=== PATIENT | male | born 1965 | race Two or more races ===

== ENCOUNTER 2019-01-11 11:24 | Inpatient (IN) | payer SELFPAY ==
[~2019-01-11] VITALS: Ht 167.6 cm; Wt 102.5 kg
[2019-01-11 12:58] LABS: Basophils # (auto) 0 uL; Basophils % (auto) 0.3 % (0.0-2.0); Eosinophils # (auto) 0.2 uL; Eosinophils % (auto) 1.9 % (0.0-7.0); Hematocrit 45.3 % (41.0-53.0); Hemoglobin 14.5 g/dL (13.5-17.5); Lymphocytes # (auto) 1.1 uL; Lymphocytes % (auto) 10.8 % (10.0-50.0); Mean Corpuscular Hemoglobin 28.2 pg (28.0-32.0); Mean Corpuscular Hgb Conc. 32.1 g/dL (32.0-36.0); Mean Corpuscular Volume 87.9 fL (80.0-100.0); Monocytes # (auto) 0.5 uL; Neutrophils # (auto) 8.7 uL; Nucleated Red Blood Cells % 0.1 %; Platelet Count (auto) 192 10^3/uL (140-450); Red Blood Cells 5.15 10^6/uL (4.5-5.90); Red Cell Distribution Width 14.3 % (11.8-14.3); White Blood Cell 10.6 10^3/uL (4.4-10.8)
[2019-01-11 13:12] LABS: INR 1.12 (0.9-1.15); Partial Thromboplastin Time 27.5 sec (23.78-33.04); Prothrombin Time 11.9 sec (9.27-12.13)
[2019-01-11 13:31] LABS: Albumin 3.2 g/dL (3.4-5.0); BUN/Creatinine Ratio 18.3; Calcium 8.7 mg/dL (8.5-10.1); Magnesium 1.8 mg/dL (1.6-2.6); Potassium 3.3 mmol/L (3.5-5.1)
[2019-01-11 13:36] LABS: Bilirubin, Total 1.2 mg/dL (0.2-1.0); Total Protein 6.9 g/dL (6.4-8.2)
[2019-01-11] MEDS ORDERED: FUROSEMIDE 40 MG/4 ML VIAL IV ONE (14:00)
[2019-01-11] MEDS ORDERED: hydrALAZINE HCL 20 MG/ML VL IV ONE (14:00)
[2019-01-11] MEDS ORDERED: NITROGLYCERIN 0.4 MG SL TAB SL PRN (15:30)
[2019-01-11] MEDS ORDERED: LACTULOSE 20Gm/30ML SOLN PO PRN (15:30)
[2019-01-11] MEDS ORDERED: traMADol HCL 50 MG TAB PO PRN (15:30)
[2019-01-11] MEDS ORDERED: MORPHINE SULF INJ 2 MG/ML SYRINGE 1ML IV PRN (15:30)
[2019-01-11] MEDS ORDERED: SPIRONOLACTONE 25 MG TAB PO ONE (15:30)
[2019-01-11] MEDS ORDERED: TEMAZEPAM 15 MG CAP PO PRN (15:30)
[2019-01-11] MEDS ORDERED: LORazepam 0.5 MG TAB PO PRN (15:30)
[2019-01-11] MEDS ORDERED: PROMETHAZINE HCL 25 MG/ML 1ML IV PRN (15:30)
[2019-01-11] MEDS ORDERED: ACETAMINOPHEN 500 MG TAB PO PRN (15:30)
[2019-01-11] MEDS: ENALAPRIL MALEATE 10 MG TAB PO SCH (15:51)
[2019-01-11] MEDS: POTASSIUM CHL 20 Meq TABLET PO SCH (18:19)
--- NOTE | 2019-01-11 18:50 | NUR ---
Telemetry admit from [facility] admitted to Telemetry uniT. Patient oriented to Mitzi Adams RN primary RN, E[facility] unit, room 236, bed A, and unit policies regarding patient care and visiting hours. Patient now on continuous telemetry monitoring, tele box #6 and telemetry reading on arrival to unit is [facility]. Patient placed on bedside oxygen, weighed by bedscale and encouraged to call if they need something. All questions and concerns addressed, patient verbalized understanding. Note:
[2019-01-11] MEDS: ENALAPRILAT 1.25 MG/ML-1ML VIAL IV PRN (18:51)
[2019-01-11] MEDS ORDERED: ENOXAPARIN SOD 100 MG/1 ML SYRINGE SC ONE (19:00)
[2019-01-11] MEDS ORDERED: ASPirin 81 mg TAB PO ONE ×2 (19:00→20:00)
[2019-01-11] MEDS ORDERED: THIAMINE HCL 100 MG TAB PO ONE (19:00)
[2019-01-11] MEDS ORDERED: chlordiazePOXIDE HCL 25 MG CAP PO PRN (19:00)
--- NOTE | 2019-01-11 19:05 | NUR ---
WOUND PICTURE WOUND PICTURE TAKEN OF RIGHT GREAT TOE SMALL DISCOLORATION BLACKENED AREA NOTED.
--- NOTE | 2019-01-11 19:15 | NUR ---
Patient care and report handed off to Kolbyei RN. Made aware admission still to be completed, urine pendig collection, Cardio consult and echo pending.
[2019-01-11 20:00] VITALS: BP 168/103
[2019-01-11] MEDS ORDERED: IOHEXOL 350 MG/ML 100ML IJ ONE (20:37)
[2019-01-11 21:18] LABS: Alcohol, Urine < 3.0 mg/dL (0-5); Amphetamine Screen, Urine NEGATIVE (NEGATIVE); Barbiturate Scree,Urine NEGATIVE (NEGATIVE); Benzodiazephine Screen, Urine NEGATIVE (NEGATIVE); Cannabinoid Screen, Urine NEGATIVE (NEGATIVE); Cocaine Screen, Urine NEGATIVE (NEGATIVE); Opiate Scree,Urine NEGATIVE (NEGATIVE); Phencyclidine Screen, Urine NEGATIVE (NEGATIVE)
[2019-01-11] MEDS: ATORVASTATIN 20 MG TAB PO SCH (21:18)
[2019-01-11] MEDS: CARVEDILOL 3.125 MG TAB PO SCH (21:19)
[2019-01-11] MEDS: SODIUM CHLOR 0.9% PF (SALINE LOCK) 10ML VIAL/SYR IV SCH (21:20)
[2019-01-11] MEDS: FUROSEMIDE 40 MG/4 ML VIAL IV SCH (21:20)
[2019-01-11 21:42] VITALS: BP 170/101
[2019-01-11 22:30] VITALS: BP 170/101
[2019-01-12] MEDS: chlordiazePOXIDE HCL 5 MG CAP PO SCH ×5 (01:18→23:38)
[2019-01-12] MEDS: ENALAPRILAT 1.25 MG/ML-1ML VIAL IV PRN (01:30)
[2019-01-12 05:06] VITALS: BP 172/97
[2019-01-12] MEDS: POTASSIUM CHL 20 Meq TABLET PO SCH ×2 (06:03→17:54)
[2019-01-12] MEDS: FUROSEMIDE 40 MG/4 ML VIAL IV SCH ×2 (06:04→17:53)
[2019-01-12] MEDS: SODIUM CHLOR 0.9% PF (SALINE LOCK) 10ML VIAL/SYR IV SCH ×3 (06:07→21:57)
--- NOTE | 2019-01-12 06:11 | NUR ---
PAGED HOSPITALIST REGARDING COMPLAINT OF PAIN AND ELEVATED BP. AWAITING CALLBACK. CONTINUE PATIENT CARE.
--- NOTE | 2019-01-12 06:20 | NUR ---
TOMAS BADILLO/AIR TRAFFIC SYSTEMS TECHNICIAN CALLED BACK MADE AWARE OF PATIENT'S COMPLAINT, CHANGED TRAMADOL TO NORCO 7.5/325 1 TAB Q8R PRN AND ORDERED TO GIVE ENALAPRIL'S AM DOSE NOW. WILL CARRY OUT ORDER. CONTINUE PATIENT CARE.
[2019-01-12 06:29] LABS: Albumin 3.2 g/dL (3.4-5.0); BUN/Creatinine Ratio 17.3; Calcium 8.3 mg/dL (8.5-10.1); Potassium 3.7 mmol/L (3.5-5.1)
[2019-01-12 06:32] LABS: Bilirubin, Total 1.7 mg/dL (0.2-1.0); Total Protein 6.3 g/dL (6.4-8.2)
[2019-01-12] MEDS: HYDROcodone-ACET 7.5/325MG TAB PO PRN (06:47)
[2019-01-12] MEDS: ENALAPRIL MALEATE 10 MG TAB PO SCH ×3 (06:47→11:08)
[2019-01-12] MEDS: SPIRONOLACTONE 25 MG TAB PO SCH (09:19)
[2019-01-12] MEDS: ENOXAPARIN SOD 40 MG/0.4 ML SYRINGE SC SCH (09:19)
[2019-01-12] MEDS: ASPirin 81 mg TAB PO SCH (09:19)
[2019-01-12] MEDS: PANTOPRAZOLE 40 MG TAB PO SCH (09:19)
[2019-01-12] MEDS: CARVEDILOL 3.125 MG TAB PO SCH (09:20)
[2019-01-12] MEDS: NITROGLYCERIN 0.2MG/HR TOPICAL PATCH TD SCH (09:21)
[2019-01-12] MEDS: THIAMINE HCL 100 MG TAB PO SCH (09:24)
[2019-01-12 09:57] VITALS: BP 164/118
--- NOTE | 2019-01-12 10:50 | NUR ---
PAGED MD FARRIS TO VERIFY NEW BLOOD PRESSURE MEDICATION DOSAGE, AWAITING CALL BACK.
--- NOTE | 2019-01-12 10:55 | NUR ---
SPOKE WITH MD FARRIS INFORMED BLOOD PRESSURE MEDICATIONS WERE GIVEN THIS MORNING, NEW ORDERS ARE NOW IN FOR HIGHER DOSES. MD STATED TO GIVEN PATIENT 10MG OF VASOTEC, AND 6.25 OF COREG TODAY, AND CONTINUE WITH NEW DOSES TOMORROW. WILL FOLLOW THROUGH WITH NEW ORDERS.
--- NOTE | 2019-01-12 11:06 | NUR ---
WOUND CARE NOTE: Wound care in to see patient per wound care request regarding " blackened area to right great toe", that are noted present on admission. Bedside nurse took photograph of patient's skin issue upon admission for reference. Patient is 53 years old male with admitting diagnosis of Heart Failure. Patient is resting in bed in Rm. 236A. Patient is awake, alert and oriented. Patient is in no stated pain at this time. He reported that he's ambulatory and he's self turn and reposition. His Farrukh score is 19. Noted 0.5x0.5cm intact brown callus to patient's distal R great toe, surrounding skin is pink,no drainage/odor noted, left open to air. Patient has history of DM and he's not aware how he got the brown callus, states that he must have bumped it on something. No other wound noted, no pressure injury related issue noted. Patient's BLE noted edematous, advised nurse to elevate patient's BLE on pillows. Patient tolerated well. Bed in low position, call manning within reach with all safety precautions in placed. MARISA Corado at bedside. No further wound care monitoring needed at this time. Addendum: 01/12/19 at 1507 by Li Coreas RN Amended: Links added.
[2019-01-12] MEDS: CARVEDILOL 12.5 MG TAB PO SCH ×2 (11:09→21:56)
--- NOTE | 2019-01-12 12:00 | NUR ---
Nutrition Consult/assessment Notes please see attached link for complete assessment Est. Needs IBW [id number] kcal (25-30 kcal/kgBW), 51-64 gms pro (0.8-1.0 gms/kgIBW r/t elev RFT wounds). Will continue to monitor pertinent labs and reassess nutrient need prn. will reassess per dry body wt Addendum: 01/12/19 at [address] De [address] Amended: Links added.
[2019-01-12 12:47] VITALS: BP 141/105
[2019-01-12 16:35] VITALS: BP 115/76
--- NOTE | 2019-01-12 19:00 | NUR ---
OPENING NOTES Received report from day shift RN. Patient is A&O X's 4 with no s/s of distress noted. Bed is in lowest/locked position with side rails up X's 2. Call light is within reach of patient. Educated patient on POC and to use call light when in need of assistance. Patient verbalized understanding. Will continue to monitor and round hourly/PRN.
--- NOTE | 2019-01-12 19:34 | NUR ---
CLOSING NOTE ENDORSED CARE TO COPY CHASER RN. PATIENT IN BED LOW LOCK POSITION. OXYGEN ON, NO S/S OF DISTRESS.
[2019-01-12] MEDS: ATORVASTATIN 20 MG TAB PO SCH (21:57)
[2019-01-12 22:00] VITALS: BP 133/93
[2019-01-13 05:00] VITALS: BP 133/104
[2019-01-13] MEDS: FUROSEMIDE 40 MG/4 ML VIAL IV SCH ×2 (06:01→17:56)
[2019-01-13] MEDS: SODIUM CHLOR 0.9% PF (SALINE LOCK) 10ML VIAL/SYR IV SCH ×3 (06:01→21:16)
[2019-01-13] MEDS: chlordiazePOXIDE HCL 5 MG CAP PO SCH ×4 (06:01→23:59)
[2019-01-13] MEDS: POTASSIUM CHL 20 Meq TABLET PO SCH ×2 (06:01→17:55)
--- NOTE | 2019-01-13 07:30 | NUR ---
CLOSING NOTE Endorsed care to day shift RN.
[2019-01-13 09:19] VITALS: BP 126/99
[2019-01-13] MEDS: ENOXAPARIN SOD 40 MG/0.4 ML SYRINGE SC SCH (10:21)
[2019-01-13] MEDS: NITROGLYCERIN 0.2MG/HR TOPICAL PATCH TD SCH (10:22)
[2019-01-13] MEDS: CARVEDILOL 12.5 MG TAB PO SCH ×2 (10:23→21:15)
[2019-01-13] MEDS: THIAMINE HCL 100 MG TAB PO SCH (10:24)
[2019-01-13] MEDS: PANTOPRAZOLE 40 MG TAB PO SCH (10:25)
[2019-01-13] MEDS: SPIRONOLACTONE 25 MG TAB PO SCH (10:26)
[2019-01-13] MEDS: ENALAPRIL MALEATE 10 MG TAB PO SCH (10:26)
[2019-01-13] MEDS: ASPirin 81 mg TAB PO SCH (10:26)
[2019-01-13 12:28] VITALS: BP 128/101
[2019-01-13 16:50] VITALS: BP 125/64
--- NOTE | 2019-01-13 19:00 | NUR ---
OPENING NOTE Received report from day shift RN. Patient is A&O X's 4 with no s/s of distress at this time. Patient is receiving 3L O2 via NC. Educated patient on POC and to use call light when in need of assistance. Patient verbalized understanding. Bed is in lowest/locked position with side rails up X's 2. Call light is within reach of patient. Will continue to monitor and round hourly/PRN.
--- NOTE | 2019-01-13 19:11 | NUR ---
CLOSING NOTE ENDORSED CARE TO PSYCH COORDINATOR RN. BED IN LOW LOCK POSITION. OXYGEN ON. NO S/S OF DISTRESS.
[2019-01-13 21:00] VITALS: BP 138/75
[2019-01-13] MEDS: ATORVASTATIN 20 MG TAB PO SCH (21:14)
[2019-01-14 05:03] VITALS: BP 119/90
[2019-01-14] MEDS: SODIUM CHLOR 0.9% PF (SALINE LOCK) 10ML VIAL/SYR IV SCH ×3 (05:09→22:03)
[2019-01-14] MEDS: FUROSEMIDE 40 MG/4 ML VIAL IV SCH ×2 (05:09→17:43)
[2019-01-14] MEDS: chlordiazePOXIDE HCL 5 MG CAP PO SCH ×4 (05:10→23:37)
[2019-01-14] MEDS: POTASSIUM CHL 20 Meq TABLET PO SCH ×2 (05:10→17:42)
--- NOTE | 2019-01-14 07:50 | NUR ---
Patient in bed, asleep. On O2 at 2 LPM. No acute distress noted.
[2019-01-14 08:59] VITALS: BP 130/101
--- NOTE | 2019-01-14 09:15 | NUR ---
Patient in bed, awake, oriented x4. No acute distress noted.
[2019-01-14] MEDS: ENOXAPARIN SOD 40 MG/0.4 ML SYRINGE SC SCH (09:33)
[2019-01-14] MEDS: NITROGLYCERIN 0.2MG/HR TOPICAL PATCH TD SCH (09:33)
[2019-01-14] MEDS: PANTOPRAZOLE 40 MG TAB PO SCH (09:33)
[2019-01-14] MEDS: ENALAPRIL MALEATE 10 MG TAB PO SCH (09:34)
[2019-01-14] MEDS: ASPirin 81 mg TAB PO SCH (09:34)
[2019-01-14] MEDS: THIAMINE HCL 100 MG TAB PO SCH (09:34)
[2019-01-14] MEDS: SPIRONOLACTONE 25 MG TAB PO SCH (09:34)
[2019-01-14] MEDS: CARVEDILOL 12.5 MG TAB PO SCH ×2 (09:35→22:04)
--- NOTE | 2019-01-14 10:00 | NUR ---
Operations Administrator Anca Evans came over, will speak with the patient. Patient has no insurance, no access to medications, homeless as per report.
[2019-01-14 13:00] VITALS: BP 136/97
--- NOTE | 2019-01-14 14:58 | NUR ---
Dr. Galaviz at bedside for Cardiology Consult. Patient stated [place] [address], drinks alcohol. Patient is sleepy. On O2 at 3 LPM via nasal cannula.
[2019-01-14 15:23] LABS: BUN/Creatinine Ratio 22.4; Calcium 8.4 mg/dL (8.5-10.1); Potassium 4.2 mmol/L (3.5-5.1)
[2019-01-14 17:00] VITALS: BP 125/101
--- NOTE | 2019-01-14 17:50 | NUR ---
O2 at 3 LPM via long nasal cannula provided. Urinal provided. No acute distress noted.
--- NOTE | 2019-01-14 18:00 | NUR ---
Placed back the patient on O2 at 3 LPM short nasal cannula.
--- NOTE | 2019-01-14 19:31 | NUR ---
Opening Shift Note Assumed care of patient, awake and alert. No S/S of distress/SOB or pain. Pt is laying in bed with the rails up x2, bed is locked in the lowest position and the call light is within reach. Instructed on POC and to call for assist as needed. Will continue to monitor.
[2019-01-14 22:00] VITALS: BP 132/93
[2019-01-14] MEDS: ASCORBIC ACID 500 MG TAB PO SCH (22:04)
[2019-01-14] MEDS: ATORVASTATIN 20 MG TAB PO SCH (22:04)
[2019-01-15 05:00] VITALS: BP 130/90
[2019-01-15] MEDS: SODIUM CHLOR 0.9% PF (SALINE LOCK) 10ML VIAL/SYR IV SCH ×3 (06:20→21:51)
[2019-01-15] MEDS: FUROSEMIDE 40 MG/4 ML VIAL IV SCH ×2 (06:20→18:00)
[2019-01-15] MEDS: POTASSIUM CHL 20 Meq TABLET PO SCH ×2 (06:20→18:00)
[2019-01-15] MEDS: chlordiazePOXIDE HCL 5 MG CAP PO SCH ×3 (06:21→18:00)
--- NOTE | 2019-01-15 08:00 | NUR ---
Opening shift note: Patient A/O x-4, sitting in bed and not exhibiting any s/s of distress nor discomfort at this time. Patient encouraged to call if he needs anything.
[2019-01-15 08:55] VITALS: BP 134/99
[2019-01-15] MEDS: ASCORBIC ACID 500 MG TAB PO SCH ×2 (10:00→21:51)
[2019-01-15] MEDS: MULTIPLE VITAMIN TAB PO SCH (10:00)
[2019-01-15] MEDS: NITROGLYCERIN 0.2MG/HR TOPICAL PATCH TD SCH (10:00)
[2019-01-15] MEDS: ASPirin 81 mg TAB PO SCH (10:00)
[2019-01-15] MEDS: ENALAPRIL MALEATE 10 MG TAB PO SCH (10:00)
[2019-01-15] MEDS: ENOXAPARIN SOD 40 MG/0.4 ML SYRINGE SC SCH (10:00)
[2019-01-15] MEDS: CARVEDILOL 12.5 MG TAB PO SCH ×2 (10:00→21:51)
[2019-01-15] MEDS: THIAMINE HCL 100 MG TAB PO SCH (10:00)
[2019-01-15] MEDS: PANTOPRAZOLE 40 MG TAB PO SCH (10:00)
--- NOTE | 2019-01-15 11:45 | NUR ---
Per Social Service assessment, patient stated that he is not homeless and lives at a hotel. Resource information given to patient, and medical/medicare insurance application has been submitted for patient by Final Expense Agent. Patient is aware.
[2019-01-15 12:57] VITALS: BP 130/95
--- NOTE | 2019-01-15 16:59 | NUR ---
assessment Per ss consult homeless, no insurance. Patient informed me he is not homeless. Patient informed me he lives at [facility]. Per patient he will return to [facility] on discharge. Patient is independent. Patient has no need for DME. Patient has no insurance. Patient has been assessed by Ranjan Walker of [facility]. Patient may qualify for [employer] if she brings back all her paperwork. I have provided patient with resources for [facility], Dr. Nieto, and [facility] urgent care for follow up visits. I have provided patient with a prescription card from community assistance program. Addendum: 01/15/19 at 1701 by Anca CHONG Amended: Links added.
[2019-01-15 17:00] VITALS: BP 118/84
[2019-01-15] MEDS: SPIRONOLACTONE 25 MG TAB PO SCH (18:00)
--- NOTE | 2019-01-15 19:00 | NUR ---
Closing shift note: Patient A/O x-4, sitting in bed and not exhibiting any s/s of distress nor discomfort at this time. Care endorsed to Víctor
[2019-01-15 21:30] VITALS: BP 118/77
[2019-01-15] MEDS: ATORVASTATIN 20 MG TAB PO SCH (21:51)
[2019-01-16] MEDS: chlordiazePOXIDE HCL 5 MG CAP PO SCH ×5 (00:09→23:09)
[2019-01-16 04:30] VITALS: BP 116/72
[2019-01-16] MEDS: FUROSEMIDE 40 MG/4 ML VIAL IV SCH (05:25)
[2019-01-16] MEDS: SODIUM CHLOR 0.9% PF (SALINE LOCK) 10ML VIAL/SYR IV SCH ×3 (05:25→21:33)
[2019-01-16] MEDS: SPIRONOLACTONE 25 MG TAB PO SCH ×2 (05:25→18:00)
[2019-01-16] MEDS: POTASSIUM CHL 20 Meq TABLET PO SCH ×2 (05:25→18:00)
[2019-01-16 07:25] LABS: Basophils # (auto) 0 uL; Basophils % (auto) 0.7 % (0.0-2.0); Eosinophils # (auto) 0.5 uL; Eosinophils % (auto) 7.4 % (0.0-7.0); Hematocrit 40.2 % (41.0-53.0); Hemoglobin 12.8 g/dL (13.5-17.5); Lymphocytes % (auto) 14.9 % (10.0-50.0); Mean Corpuscular Hemoglobin 27.9 pg (28.0-32.0); Mean Corpuscular Hgb Conc. 31.9 g/dL (32.0-36.0); Mean Corpuscular Volume 87.5 fL (80.0-100.0); Monocytes # (auto) 0.6 uL; Monocytes % (auto) 8.7 % (0.0-12.0); Neutrophils # (auto) 4.6 uL; Neutrophils % (auto) 68.3 % (37.0-80.0); Platelet Count (auto) 170 10^3/uL (140-450); Red Blood Cells 4.59 10^6/uL (4.5-5.90); Red Cell Distribution Width 14.1 % (11.8-14.3); White Blood Cell 6.7 10^3/uL (4.4-10.8)
[2019-01-16 07:43] LABS: Calcium 9.1 mg/dL (8.5-10.1); Potassium 4.1 mmol/L (3.5-5.1)
[2019-01-16 07:51] LABS: BUN/Creatinine Ratio 20.8
[2019-01-16 09:00] VITALS: BP 134/77
[2019-01-16] MEDS: THIAMINE HCL 100 MG TAB PO SCH (10:00)
[2019-01-16] MEDS: CARVEDILOL 12.5 MG TAB PO SCH ×2 (10:00→21:32)
[2019-01-16 11:41] LABS: BUN/Creatinine Ratio 20.1; Calcium 9.5 mg/dL (8.5-10.1); Potassium 4.1 mmol/L (3.5-5.1)
[2019-01-16] MEDS: ENOXAPARIN SOD 40 MG/0.4 ML SYRINGE SC SCH (11:44)
[2019-01-16] MEDS: PANTOPRAZOLE 40 MG TAB PO SCH (11:46)
[2019-01-16] MEDS: NITROGLYCERIN 0.2MG/HR TOPICAL PATCH TD SCH (11:46)
[2019-01-16] MEDS: ASPirin 81 mg TAB PO SCH (11:47)
[2019-01-16] MEDS: MULTIPLE VITAMIN TAB PO SCH (11:48)
[2019-01-16] MEDS: ENALAPRIL MALEATE 10 MG TAB PO SCH (11:48)
[2019-01-16] MEDS: ASCORBIC ACID 500 MG TAB PO SCH ×2 (11:48→21:32)
[2019-01-16 13:00] VITALS: BP 118/85
[2019-01-16 17:27] VITALS: BP 120/85
[2019-01-16] MEDS: FUROSEMIDE 40 MG TAB PO SCH (18:00)
--- NOTE | 2019-01-16 19:00 | NUR ---
Closing shift note: Patient A/O x-4 and not stating any pain nor discomfort at this time. Care endorsed to Vivek
--- NOTE | 2019-01-16 20:00 | NUR ---
OPENING NOTE RECEIVED REPORT FROM DAYSHIFT RN. ASSUMING ROLE OF CARE OF PATIENT AT THIS TIME. PATIENT SHOWING NO SIGN OF DISTRESS, SHORTNESS OF BREATH, AND PATIENT DENIES ANY PAIN AT THIS TIME. PATIENT EDUCATED ON PLAN OF CARE FOR THE NIGHT AND PATIENT VERBALIZED UNDERSTANDING. BED LOWERED, CALL LIGHT WITHIN REACH, AND PATIENT WILL BE ROUNDED ON EVERY HOUR AND NEEDED.
[2019-01-16] MEDS: ATORVASTATIN 20 MG TAB PO SCH (21:31)
[2019-01-16 21:36] VITALS: BP 134/90
[2019-01-17] MEDS: HYDROcodone-ACET 7.5/325MG TAB PO PRN (04:06)
[2019-01-17 04:23] VITALS: BP 106/71
[2019-01-17] MEDS: SPIRONOLACTONE 25 MG TAB PO SCH (05:20)
[2019-01-17] MEDS: FUROSEMIDE 40 MG TAB PO SCH (05:20)
[2019-01-17] MEDS: POTASSIUM CHL 20 Meq TABLET PO SCH (05:20)
[2019-01-17] MEDS: chlordiazePOXIDE HCL 5 MG CAP PO SCH ×2 (05:21→12:00)
[2019-01-17] MEDS: SODIUM CHLOR 0.9% PF (SALINE LOCK) 10ML VIAL/SYR IV SCH (05:21)
[2019-01-17 06:35] LABS: Calcium 9.6 mg/dL (8.5-10.1); Potassium 4.2 mmol/L (3.5-5.1)
[2019-01-17 08:45] VITALS: BP 129/93
[2019-01-17] MEDS: ENOXAPARIN SOD 40 MG/0.4 ML SYRINGE SC SCH (10:45)
[2019-01-17] MEDS: ASCORBIC ACID 500 MG TAB PO SCH (10:46)
[2019-01-17] MEDS: THIAMINE HCL 100 MG TAB PO SCH (10:46)
[2019-01-17] MEDS: PANTOPRAZOLE 40 MG TAB PO SCH (10:46)
[2019-01-17] MEDS: MULTIPLE VITAMIN TAB PO SCH (10:46)
[2019-01-17] MEDS: ASPirin 81 mg TAB PO SCH (10:46)
[2019-01-17] MEDS: CARVEDILOL 12.5 MG TAB PO SCH (10:47)
[2019-01-17] MEDS: ENALAPRIL MALEATE 10 MG TAB PO SCH (10:47)
[2019-01-17] MEDS: NITROGLYCERIN 0.2MG/HR TOPICAL PATCH TD SCH (10:48)
--- NOTE | 2019-01-17 10:55 | NUR ---
was at bedside - Dr. Glasgow
--- NOTE | 2019-01-17 11:00 | NUR ---
Pulse ox on RA = 99%
[2019-01-17] MEDS ORDERED: POTASSIUM CHL 20 Meq TABLET PO ONE (11:45)
[2019-01-17 12:48] VITALS: BP 108/67
--- NOTE | 2019-01-17 13:29 | NUR ---
IV & telemonitor removed IV removed with clean technique, catheter intact. Dressing applied. patient tolerated well. Telemonitor removed, cleaned and returned to telemonitor tech.
[2019-01-17 13:33] VITALS: BP 108/67
[2019-01-17] MEDS ORDERED: FURO40TA4 PO (14:41)
[2019-01-17] MEDS ORDERED: ENAL2.5T PO (14:41)
[2019-01-17] MEDS ORDERED: ASPI81TA27 PO (14:41)
[2019-01-17] MEDS ORDERED: POTA20TA53 PO (14:41)
[2019-01-17] MEDS ORDERED: CARV12.544 PO (14:41)
--- NOTE | 2019-01-17 15:20 | NUR ---
RE: personal belonging in safe Contacted Gabriela, house director, to request patient's personal items be brought to the patient. Gabriela verbalized understanding.
--- NOTE | 2019-01-17 15:34 | NUR ---
Discharge discharge education and paperwork provided to the patient. Patient instructed on all options to receive follow up care. Patient verbalized understanding. IV and telemonitor previously removed. Patient's personal belonging from the hospital safe returned to the patient by kathia Ochoalighthouse keeper. Instructed patient to gather all personal belongings and notify staff once ready. Patient verbalized understanding. No distress noted at this time.
--- NOTE | 2019-01-17 15:34 | NUR ---
Contacted [facility] for transportation ETA 20 minutes.
--- NOTE | 2019-01-17 16:00 | NUR ---
Patient taken to the ER to meet regional driver. Staff member assisted patient. Patient reports having all personal belongings.
== END 2019-01-17 16:00 | disposition home or self-care (01) | DRG 280 ==
LOC: EDBD 11:24 → ER 11:32 → TELE 15:29 → TELE-EAST 18:40
PROVIDERS: ADMIT Internal Medicine; ATTEND Internal Medicine Pulmonary Disease
DX: I21.4 Non-ST elevation (NSTEMI) myocardial infarction (principal); I50.43 Acute on chronic combined systolic (congestive) and diastolic (congestive) heart failure; N17.0 Acute kidney failure with tubular necrosis; I13.0 Hypertensive heart and chronic kidney disease with heart failure and stage 1 through stage 4 chronic kidney disease, or unspecified chronic kidney disease; E87.1 Hypo-osmolality and hyponatremia; J98.11 Atelectasis; I42.9 Cardiomyopathy, unspecified; E66.9 Obesity, unspecified; E87.6 Hypokalemia; N18.9 Chronic kidney disease, unspecified; E11.22 Type 2 diabetes mellitus with diabetic chronic kidney disease; F10.10 Alcohol abuse, uncomplicated; M71.21 Synovial cyst of popliteal space [Baker], right knee; M54.9 Dorsalgia, unspecified; Z68.36 Body mass index [BMI] 36.0-36.9, adult; Z86.73 Personal history of transient ischemic attack (TIA), and cerebral infarction without residual deficits; Z59.0 Homelessness
CPT/HCPCS: 36415; 71045; 71046; 71260; 74177; 80048; 80053; 80307; 82550; 83735; 83880; 84484; 85025; 85379; 85610; 85652; 85730; 86141; 87081; 93005; 93306; 93926; 93970; 96374; 96375; G0378

== ENCOUNTER 2019-07-12 17:40 | Emergency (ER) | payer MEDICAID ==
[~2019-07-12] VITALS: Ht 167.6 cm; Wt 81.6 kg
[~2019-07-12 17:40] MED LIST: ASPI-404 PO; CARV12.544 PO; ENAL2.5T PO; FURO40TA4 PO; POTA-220 PO
[2019-07-12] MEDS ORDERED: THIAMINE INJ 100 MG in SODIUM CHLORIDE 0.9% 1,000 ML IV ONE (19:00)
[2019-07-12] MEDS ORDERED: SODIUM CHLORIDE 0.9% 1,000 ML IV ONE (19:00)
[2019-07-12 19:38] LABS: Basophils # (auto) 0.1 uL; Basophils % (auto) 0.9 % (0.0-2.0); Eosinophils # (auto) 1.1 uL; Eosinophils % (auto) 12.6 % (0.0-7.0); Hematocrit 37.2 % (41.0-53.0); Hemoglobin 12.6 g/dL (13.5-17.5); Lymphocytes # (auto) 2.1 uL; Lymphocytes % (auto) 23.9 % (10.0-50.0); Mean Corpuscular Hemoglobin 30.5 pg (28.0-32.0); Mean Corpuscular Volume 89.7 fL (80.0-100.0); Monocytes # (auto) 0.7 uL; Monocytes % (auto) 8.3 % (0.0-12.0); Neutrophils # (auto) 4.7 uL; Neutrophils % (auto) 54.3 % (37.0-80.0); Platelet Count (auto) 183 10^3/uL (140-450); Red Blood Cells 4.14 10^6/uL (4.5-5.90); Red Cell Distribution Width 13.2 % (11.8-14.3); White Blood Cell 8.7 10^3/uL (4.4-10.8)
[2019-07-12 19:44] LABS: Albumin 3.7 g/dL (3.4-5.0); Calcium 8.5 mg/dL (8.5-10.1); Potassium 3.5 mmol/L (3.5-5.1)
[2019-07-12 19:47] LABS: BUN/Creatinine Ratio 17.2
[2019-07-12 19:50] LABS: Bilirubin, Total 0.4 mg/dL (0.2-1.0); Total Protein 7.5 g/dL (6.4-8.2)
[2019-07-12] MEDS ORDERED: THIAMINE 100mg/ml INJ (200mg/2ml VIAL) ONE (23:15)
[2019-07-13 04:08] VITALS: BP 143/79
== END 2019-07-13 04:07 | disposition home or self-care (01) ==
LOC: EDUNIT# 17:40 → ER 17:40 → EDBD 17:40 → ER 07-13 04:07
DX: S00.03XA Contusion of scalp, initial encounter (principal); F10.129 Alcohol abuse with intoxication, unspecified; I11.0 Hypertensive heart disease with heart failure; I50.9 Heart failure, unspecified; E11.9 Type 2 diabetes mellitus without complications; W19.XXXA Unspecified fall, initial encounter; Y93.89 Activity, other specified; Y92.89 Other specified places as the place of occurrence of the external cause; Y99.8 Other external cause status; Y90.9 Presence of alcohol in blood, level not specified
CPT/HCPCS: 36415; 70450; 72125; 73700; 80053; 80320; 85025; 96365; 99284; J3411; J7030

== ENCOUNTER 2020-09-26 03:49 | Inpatient (IN) | payer MEDICAID ==
[~2020-09-26] VITALS: Ht 167.6 cm; Wt 100.2 kg
[~2020-09-26 03:49] MED LIST changes: -ASPI-404 PO; +ASPI-543 PO; -ENAL2.5T PO; +ENAL2.5T7 PO
[2020-09-26] MEDS ORDERED: ASPirin 81 mg TAB PO ONE (04:15)
[2020-09-26] MEDS ORDERED: FUROSEMIDE 40 MG/4 ML VIAL IV ONE ×2 (04:15→05:00)
[2020-09-26] MEDS ORDERED: cloNIDine HCL 0.1 MG TAB PO ONE (07:30)
[2020-09-26 08:35] LABS: Basophils # (auto) 0.1 10 ^3/uL (0-0.2); Basophils % (auto) 1.2 % (0.0-2.0); Eosinophils # (auto) 0.3 10 ^3/uL (0-0.8); Eosinophils % (auto) 3.3 % (0.0-7.0); Hematocrit 39.8 % (41.0-53.0); Lymphocytes # (auto) 0.9 10 ^3/uL (0.4-5.4); Lymphocytes % (auto) 10.1 % (10.0-50.0); Mean Corpuscular Hemoglobin 29.8 pg (28.0-32.0); Mean Corpuscular Hgb Conc. 32.8 g/dL (32.0-36.0); Mean Corpuscular Volume 90.8 fL (80.0-100.0); Monocytes # (auto) 0.5 10 ^3/uL (0-1.3); Monocytes % (auto) 5.1 % (0.0-12.0); Neutrophils # (auto) 7.4 10 ^3/uL (1.6-8.6); Neutrophils % (auto) 80.3 % (37.0-80.0); Nucleated Red Blood Cells % 0.1 %; Platelet Count (auto) 221 10^3/uL (140-450); Red Blood Cells 4.38 10^6/uL (4.5-5.90); Red Cell Distribution Width 14.3 % (11.8-14.3); White Blood Cell 9.3 10^3/uL (4.4-10.8)
[2020-09-26 08:48] LABS: Albumin 3.6 g/dL (3.4-5.0); Calcium 8.6 mg/dL (8.5-10.1); Potassium 3.6 mmol/L (3.5-5.1)
[2020-09-26 08:56] LABS: BUN/Creatinine Ratio 15.3; Bilirubin, Total 1.4 mg/dL (0.2-1.0); Total Protein 7.6 g/dL (6.4-8.2)
[2020-09-26 09:06] LABS: INR 1.06 (0.9-1.15); Partial Thromboplastin Time 25.4 sec (23.0-31.2)
[2020-09-26] MEDS ORDERED: NITROGLYCERIN 0.4 MG SL TAB SL PRN (12:45)
[2020-09-26] MEDS ORDERED: hydrALAZINE HCL 20 MG/ML VL IV PRN (12:45)
[2020-09-26] MEDS: THIAMINE HCL 100 MG TAB PO SCH (12:45)
[2020-09-26] MEDS ORDERED: ACETAMINOPHEN 500 MG TAB PO PRN (12:45)
[2020-09-26] MEDS ORDERED: HYDROcodone-ACET 5/325MG TAB PO PRN (12:45)
[2020-09-26] MEDS ORDERED: ONDANSETRON HCL 4 MG/2 ML VIAL IV PRN (12:45)
[2020-09-26] MEDS ORDERED: MORPHINE SULF INJ 2 MG/ML SYRINGE 1ML IV PRN ×2 (12:45)
[2020-09-26] MEDS: MULTIPLE VITAMIN TAB PO SCH (12:45)
[2020-09-26] MEDS ORDERED: LORazepam 2MG/ML-1ML VIAL IV PRN (12:45)
[2020-09-26] MEDS ORDERED: CARVEDILOL 3.125 MG TAB PO SCH ×2 (14:15→22:00)
[2020-09-26] MEDS ORDERED: cloNIDine HCL 0.1 MG TAB PO PRN (14:15)
--- NOTE | 2020-09-26 15:30 | NUR ---
PATIENT ARRIVED VIA GURNEY FROM ER WITH NO SIGNS OF DISTRESS OR SOB. PATIENT IS AOX4, DENIES CHEST PAIN, PATIENT IS ON TELENUMBER 51 AT HR OF 90'S WITH ST DEPRESSIONS. DR. LIEBERMAN SPOKE TO PATIENT DOWNSTAIRS REGARDING CARDIOLOGY CONSULTATION. BED IS LOCKED AND IN LOWEST POSITION. CALL LIGHT WITHIN REACH. WILL CONTINUE WITH POC.
[2020-09-26 15:44] VITALS: BP 181/128
--- NOTE | 2020-09-26 19:30 | NUR ---
Opening Shift Note Assumed care of patient, awake and alert. No S/S of distress/SOB or pain. Instructed on POC and to call for assist PRN, will continue to monitor for changes Q1hr and PRN.
[2020-09-26] MEDS: DOCUSATE SOD 100 MG CAP PO SCH (21:21)
[2020-09-26] MEDS: CARVEDILOL 12.5 MG TAB PO SCH (21:22)
[2020-09-26] MEDS: ATORVASTATIN 20 MG TAB PO SCH (21:22)
[2020-09-26 22:00] VITALS: BP 148/91
[2020-09-27 05:00] VITALS: BP 144/82
[2020-09-27 05:54] LABS: Basophils # (auto) 0.1 10 ^3/uL (0-0.2); Basophils % (auto) 0.8 % (0.0-2.0); Eosinophils # (auto) 0.5 10 ^3/uL (0-0.8); Eosinophils % (auto) 6.2 % (0.0-7.0); Hematocrit 37.4 % (41.0-53.0); Hemoglobin 12.2 g/dL (13.5-17.5); Lymphocytes # (auto) 0.9 10 ^3/uL (0.4-5.4); Lymphocytes % (auto) 11.2 % (10.0-50.0); Mean Corpuscular Hemoglobin 29.6 pg (28.0-32.0); Mean Corpuscular Hgb Conc. 32.7 g/dL (32.0-36.0); Mean Corpuscular Volume 90.5 fL (80.0-100.0); Monocytes # (auto) 0.5 10 ^3/uL (0-1.3); Neutrophils # (auto) 5.9 10 ^3/uL (1.6-8.6); Neutrophils % (auto) 74.8 % (37.0-80.0); Nucleated Red Blood Cells % 0.1 %; Platelet Count (auto) 205 10^3/uL (140-450); Red Blood Cells 4.14 10^6/uL (4.5-5.90); Red Cell Distribution Width 13.9 % (11.8-14.3); White Blood Cell 7.8 10^3/uL (4.4-10.8)
[2020-09-27 06:14] LABS: BUN/Creatinine Ratio 19.5; Calcium 8.4 mg/dL (8.5-10.1)
[2020-09-27 06:18] LABS: INR 1.1 (0.9-1.15); Partial Thromboplastin Time 27.6 sec (23.0-31.2)
--- NOTE | 2020-09-27 07:30 | NUR ---
ASSUMED CARE OF PATIENT AWAKE AND ALERT. RESPIRATIONS EVEN AND UNLABORED. UPDATED PATIENT ON PLAN OF CARE AND TO CALL FOR ASSISTANCE IF NEEDED. HOB ELEVATED AT LEAST 30 DEGREES, CALL LIGHT IS WITHIN REACH, SIDE RAILS UP X 2 AND BED LOCKED IN LOWEST POSITION.
--- NOTE | 2020-09-27 07:30 | NUR ---
closing note endorsed care to MARISA An. No sign of pain/distress at this time
[2020-09-27 08:43] VITALS: BP 153/97
[2020-09-27] MEDS: DOCUSATE SOD 100 MG CAP PO SCH ×2 (09:09→22:27)
[2020-09-27] MEDS: LISINOPRIL 10 MG TAB PO SCH (09:09)
[2020-09-27] MEDS: MULTIPLE VITAMIN TAB PO SCH (09:09)
[2020-09-27] MEDS: CARVEDILOL 12.5 MG TAB PO SCH ×2 (09:09→22:26)
[2020-09-27] MEDS: THIAMINE HCL 100 MG TAB PO SCH (09:10)
[2020-09-27] MEDS: FAMOTIDINE 20 MG TAB PO SCH (09:10)
[2020-09-27] MEDS: ASPirin-EC 81 mg tab PO SCH (09:10)
[2020-09-27] MEDS ORDERED: DEXTROSE (50%) 50ML SYRG IV PRN ×2 (10:15→10:45)
[2020-09-27] MEDS ORDERED: POTASSIUM CHL 20 Meq TABLET PO ONE (10:15)
[2020-09-27] MEDS ORDERED: FUROSEMIDE 40 MG TAB PO ONE (10:15)
--- NOTE | 2020-09-27 10:19 | NUR ---
DR MONTOYA AT BEDSIDE. ORDERS RECEIVED TO PLACE PATIENT ON MILD SLIDING SCALE ACHS. CONTINUE CARE.
[2020-09-27] MEDS: InsuLIN REG 1unit/0.01ml Soln (100units/ml) SC SCH ×3 (12:00→22:29)
[2020-09-27] MEDS ORDERED: ACCU-CHEK COMFORT CURVE STRIP VI SCH (12:00)
[2020-09-27] MEDS ORDERED: InsuLIN REG 1unit/0.01ml Soln (100units/ml) SC SCH (12:00)
[2020-09-27] MEDS ORDERED: PNEUMOCOCCAL VACC POLYS 25 MCG/0.5 ML VIAL IM ONE (12:15)
[2020-09-27 13:00] VITALS: BP 141/92
[2020-09-27 16:34] VITALS: BP 146/102
[2020-09-27] MEDS: ACCU-CHEK COMFORT CURVE STRIP VI SCH ×2 (17:13→22:26)
[2020-09-27] MEDS: FUROSEMIDE 40 MG TAB PO SCH (17:15)
--- NOTE | 2020-09-27 19:30 | NUR ---
Opening Shift Note Assumed care of patient, awake and alert. No S/S of distress/SOB or pain. Updated on POC and to call for assist PRN, patient verbalized understanding, call light within reach, will continue to monitor for changes Q1hr and PRN.
--- NOTE | 2020-09-27 19:31 | NUR ---
ENDORSED CARE TO NOC SHIFT RN
[2020-09-27 21:54] VITALS: BP 148/87
[2020-09-27] MEDS: POTASSIUM CHL 20 Meq TABLET PO SCH (22:25)
[2020-09-27] MEDS: ATORVASTATIN 20 MG TAB PO SCH (22:26)
[2020-09-28 05:16] VITALS: BP 149/105
[2020-09-28 05:17] VITALS: BP 150/97
[2020-09-28] MEDS: ACCU-CHEK COMFORT CURVE STRIP VI SCH ×4 (06:23→22:12)
[2020-09-28] MEDS: FUROSEMIDE 40 MG TAB PO SCH (06:24)
[2020-09-28] MEDS: InsuLIN REG 1unit/0.01ml Soln (100units/ml) SC SCH ×4 (06:25→22:13)
--- NOTE | 2020-09-28 07:00 | NUR ---
OPENING SHIFT NOTE RECEIVED REPORT ON THE PATIENT. AWAKE LYING IN BED. PATIENT SHOWS NO SIGNS OF DISTRESS AT THIS TIME. DISCUSSED THE PLAN OF CARE WITH THE PATIENT. BED IN LOWEST POSITION, SIDE RAIL UP X2, AND THE CALL LIGHT IS WITHIN REACH.
[2020-09-28 07:26] LABS: Basophils # (auto) 0.1 10 ^3/uL (0-0.2); Basophils % (auto) 0.8 % (0.0-2.0); Eosinophils # (auto) 0.5 10 ^3/uL (0-0.8); Eosinophils % (auto) 5.2 % (0.0-7.0); Hematocrit 38.1 % (41.0-53.0); Hemoglobin 12.3 g/dL (13.5-17.5); Lymphocytes % (auto) 10.5 % (10.0-50.0); Mean Corpuscular Hemoglobin 29.2 pg (28.0-32.0); Mean Corpuscular Hgb Conc. 32.3 g/dL (32.0-36.0); Mean Corpuscular Volume 90.4 fL (80.0-100.0); Monocytes # (auto) 0.5 10 ^3/uL (0-1.3); Monocytes % (auto) 5.6 % (0.0-12.0); Neutrophils # (auto) 7.2 10 ^3/uL (1.6-8.6); Neutrophils % (auto) 77.9 % (37.0-80.0); Platelet Count (auto) 213 10^3/uL (140-450); Red Blood Cells 4.21 10^6/uL (4.5-5.90); White Blood Cell 9.2 10^3/uL (4.4-10.8)
[2020-09-28 07:50] LABS: Calcium 8.8 mg/dL (8.5-10.1)
[2020-09-28 07:58] LABS: BUN/Creatinine Ratio 19.5
[2020-09-28 09:00] VITALS: BP_SYST 154; BP_SYST 163; BP_DIAS 102; BP_DIAS 110
[2020-09-28] MEDS: CARVEDILOL 12.5 MG TAB PO SCH ×2 (09:35→22:12)
[2020-09-28] MEDS: DOCUSATE SOD 100 MG CAP PO SCH ×3 (09:35→22:11)
[2020-09-28] MEDS: FAMOTIDINE 20 MG TAB PO SCH (09:36)
[2020-09-28] MEDS: LISINOPRIL 10 MG TAB PO SCH (09:36)
[2020-09-28] MEDS: ASPirin-EC 81 mg tab PO SCH (09:36)
[2020-09-28] MEDS: THIAMINE HCL 100 MG TAB PO SCH (09:38)
[2020-09-28] MEDS: POTASSIUM CHL 20 Meq TABLET PO SCH ×2 (09:39→22:11)
[2020-09-28] MEDS: MULTIPLE VITAMIN TAB PO SCH (09:39)
[2020-09-28] MEDS ORDERED: IOHEXOL 350 MG/ML 100ML IJ ONE ×2 (11:06→17:04)
[2020-09-28 13:00] VITALS: BP 155/99
--- NOTE | 2020-09-28 16:25 | NUR ---
Regarding social service consult for no insurance. Anca Finley will contact patient and Ranjan Ellington will follow up with patient.
--- NOTE | 2020-09-28 16:52 | NUR ---
IV insertion IV access obtained, via clean sterile technique by inserting 20 gauge catheter at the right forearm after 1 attempt(s). IV secured properly. No trauma to site. Patient tolerated well. NOTE: []
[2020-09-28 17:00] VITALS: BP 142/89
[2020-09-28] MEDS: FUROSEMIDE 40 MG/4 ML VIAL IV SCH (17:29)
[2020-09-28 22:00] VITALS: BP 131/79
[2020-09-28] MEDS: ATORVASTATIN 20 MG TAB PO SCH (22:12)
[2020-09-29 05:00] VITALS: BP 133/92
[2020-09-29] MEDS: FUROSEMIDE 40 MG/4 ML VIAL IV SCH (06:35)
[2020-09-29] MEDS: ACCU-CHEK COMFORT CURVE STRIP VI SCH ×2 (06:36→11:30)
[2020-09-29] MEDS: InsuLIN REG 1unit/0.01ml Soln (100units/ml) SC SCH ×2 (06:44→11:30)
[2020-09-29 08:04] LABS: Basophils # (auto) 0.1 10 ^3/uL (0-0.2); Basophils % (auto) 0.7 % (0.0-2.0); Eosinophils # (auto) 0.5 10 ^3/uL (0-0.8); Eosinophils % (auto) 5.6 % (0.0-7.0); Hematocrit 40.3 % (41.0-53.0); Hemoglobin 13.4 g/dL (13.5-17.5); Lymphocytes # (auto) 1.1 10 ^3/uL (0.4-5.4); Mean Corpuscular Hemoglobin 29.7 pg (28.0-32.0); Mean Corpuscular Hgb Conc. 33.1 g/dL (32.0-36.0); Mean Corpuscular Volume 89.6 fL (80.0-100.0); Monocytes # (auto) 0.4 10 ^3/uL (0-1.3); Monocytes % (auto) 4.8 % (0.0-12.0); Neutrophils # (auto) 6.2 10 ^3/uL (1.6-8.6); Neutrophils % (auto) 75.9 % (37.0-80.0); Nucleated Red Blood Cells % 0.1 %; Platelet Count (auto) 226 10^3/uL (140-450); Red Cell Distribution Width 13.9 % (11.8-14.3); White Blood Cell 8.2 10^3/uL (4.4-10.8)
[2020-09-29 08:29] LABS: Potassium 3.9 mmol/L (3.5-5.1)
[2020-09-29 08:38] LABS: BUN/Creatinine Ratio 21.4; Calcium 9.3 mg/dL (8.5-10.1)
[2020-09-29 09:00] VITALS: BP 142/106
[2020-09-29] MEDS: THIAMINE HCL 100 MG TAB PO SCH (10:00)
[2020-09-29] MEDS: POTASSIUM CHL 20 Meq TABLET PO SCH (10:00)
[2020-09-29] MEDS: DOCUSATE SOD 100 MG CAP PO SCH (10:00)
[2020-09-29] MEDS: MULTIPLE VITAMIN TAB PO SCH (10:00)
[2020-09-29] MEDS: FAMOTIDINE 20 MG TAB PO SCH (10:00)
[2020-09-29] MEDS: ASPirin-EC 81 mg tab PO SCH (10:35)
[2020-09-29] MEDS: CARVEDILOL 12.5 MG TAB PO SCH (10:35)
[2020-09-29] MEDS: LISINOPRIL 10 MG TAB PO SCH (10:36)
[2020-09-29 11:44] VITALS: BP 142/106
[2020-09-29 13:00] VITALS: BP 131/78
== END 2020-09-29 14:49 | disposition home or self-care (01) | DRG 194 ==
LOC: ER 03:49 → EDBD 03:49 → TELE 03:50 → TELE-WESTW 15:32
PROVIDERS: ADMIT Nurse Practitioner Acute Care; ATTEND Internal Medicine
DX: I11.0 Hypertensive heart disease with heart failure (principal); I21.A1 Myocardial infarction type 2; J98.11 Atelectasis; J91.8 Pleural effusion in other conditions classified elsewhere; I50.43 Acute on chronic combined systolic (congestive) and diastolic (congestive) heart failure; I42.9 Cardiomyopathy, unspecified; I16.0 Hypertensive urgency; E66.9 Obesity, unspecified; Z91.14 Patient's other noncompliance with medication regimen; E11.21 Type 2 diabetes mellitus with diabetic nephropathy; Z79.899 Other long term (current) drug therapy; F10.20 Alcohol dependence, uncomplicated; Z79.82 Long term (current) use of aspirin; Z83.3 Family history of diabetes mellitus; Z91.19 Patient's noncompliance with other medical treatment and regimen; R79.89 Other specified abnormal findings of blood chemistry; Z68.39 Body mass index [BMI] 39.0-39.9, adult
CPT/HCPCS: 36415; 71045; 71275; 80048; 80053; 82962; 83036; 83880; 84443; 84484; 85025; 85379; 85610; 85730; 86141; 93005; 93306; 93970; 96374; G0378; J1815

== ENCOUNTER 2021-12-28 07:51 | Inpatient (IN) | payer MEDICAID ==
[~2021-12-28] VITALS: Ht 170.2 cm; Wt 104.5 kg
[2021-12-28] MEDS ORDERED: LABETALOL HCL 5 MG/ML 4ML SYRINGE IV ONE (08:30)
[2021-12-28] MEDS ORDERED: FUROSEMIDE 40 MG/4 ML VIAL IV ONE (08:30)
[2021-12-28 08:51] LABS: Basophils # (auto) 0.1 10 ^3/uL (0-0.2); Basophils % (auto) 1.2 % (0.0-2.0); Eosinophils # (auto) 0.3 10 ^3/uL (0-0.8); Eosinophils % (auto) 2.7 % (0.0-7.0); Hemoglobin 13.2 g/dL (13.5-17.5); Lymphocytes # (auto) 1.6 10 ^3/uL (0.4-5.4); Lymphocytes % (auto) 15.8 % (10.0-50.0); Mean Corpuscular Hemoglobin 28.9 pg (28.0-32.0); Mean Corpuscular Volume 87.5 fL (80.0-100.0); Monocytes # (auto) 0.6 10 ^3/uL (0-1.3); Monocytes % (auto) 5.6 % (0.0-12.0); Neutrophils # (auto) 7.6 10 ^3/uL (1.6-8.6); Neutrophils % (auto) 74.7 % (37.0-80.0); Red Blood Cells 4.57 10^6/uL (4.5-5.90); Red Cell Distribution Width 15.6 % (11.8-14.3); White Blood Cell 10.2 10^3/uL (4.4-10.8)
[2021-12-28] MEDS ORDERED: cloNIDine HCL 0.1 MG TAB PO ONE (09:00)
[2021-12-28 09:05] LABS: Albumin 3.7 g/dL (3.4-5.0); Calcium 9.5 mg/dL (8.5-10.1)
[2021-12-28 09:07] LABS: INR 1.16 (0.9-1.15); Partial Thromboplastin Time 29.2 sec (23.6-33.0)
[2021-12-28 09:08] LABS: Bilirubin, Total 1.6 mg/dL (0.2-1.0); Potassium 4.1 mmol/L (3.5-5.1); Total Protein 7.8 g/dL (6.4-8.2)
[2021-12-28] MEDS ORDERED: hydrALAZINE HCL 20 MG/ML VL IV ONE (11:00)
[2021-12-28] MEDS ORDERED: ONDANSETRON HCL 4 MG/2 ML VIAL IV PRN (11:30)
[2021-12-28] MEDS ORDERED: NITROGLYCERIN 0.4 MG SL TAB SL PRN (11:30)
[2021-12-28] MEDS ORDERED: MORPHINE SULFATE 4 MG/ML SYR/VIAL IV PRN (11:30)
[2021-12-28] MEDS ORDERED: HYDROcodone-ACET 5/325MG TAB PO PRN (11:30)
[2021-12-28] MEDS ORDERED: MORPHINE SULFATE INJECTION 2 MG/ML SYRG IV PRN (11:30)
[2021-12-28] MEDS ORDERED: ACETAMINOPHEN 325 MG TAB PO PRN (11:30)
[2021-12-28 12:15] LABS: Urine Bacteria NONE SEEN /hpf (None Seen); Urine Blood Negative /uL (Negative); Urine Specific Gravity 1.009 (1.001-1.035); Urine WBC <1 /hpf (0 - 3)
[2021-12-28] MEDS ORDERED: hydrALAZINE HCL 25 MG TAB PO PRN (13:15)
[2021-12-28] MEDS: amLODIPine BESYLATE 5 MG TAB PO SCH (15:03)
[2021-12-28 17:00] VITALS: BP 158/86
[2021-12-28] MEDS: FUROSEMIDE 40 MG/4 ML VIAL IV SCH (17:22)
[2021-12-28] MEDS ORDERED: INSU1INJ19 SC (18:06)
[2021-12-28] MEDS: CARVEDILOL 12.5 MG TAB PO SCH (21:32)
[2021-12-28 22:00] VITALS: BP 158/71
[2021-12-29] VITALS (7 sets, daily range): BP systolic 125–144; BP diastolic 78–96
[2021-12-29] MEDS: FUROSEMIDE 40 MG/4 ML VIAL IV SCH ×2 (06:21→17:58)
[2021-12-29 06:37] LABS: Basophils # (auto) 0.1 10 ^3/uL (0-0.2); Basophils % (auto) 0.8 % (0.0-2.0); Eosinophils # (auto) 0.4 10 ^3/uL (0-0.8); Eosinophils % (auto) 5.4 % (0.0-7.0); Hematocrit 37.3 % (41.0-53.0); Hemoglobin 12.8 g/dL (13.5-17.5); Lymphocytes # (auto) 1.1 10 ^3/uL (0.4-5.4); Lymphocytes % (auto) 13.4 % (10.0-50.0); Mean Corpuscular Hemoglobin 29.6 pg (28.0-32.0); Mean Corpuscular Hgb Conc. 34.2 g/dL (32.0-36.0); Mean Corpuscular Volume 86.6 fL (80.0-100.0); Monocytes # (auto) 0.5 10 ^3/uL (0-1.3); Monocytes % (auto) 5.9 % (0.0-12.0); Neutrophils % (auto) 74.5 % (37.0-80.0); Nucleated Red Blood Cells % 0.1 %; Red Blood Cells 4.31 10^6/uL (4.5-5.90); Red Cell Distribution Width 15.5 % (11.8-14.3); White Blood Cell 8.1 10^3/uL (4.4-10.8)
[2021-12-29 06:55] LABS: Albumin 3.1 g/dL (3.4-5.0); Calcium 8.7 mg/dL (8.5-10.1); Potassium 4.1 mmol/L (3.5-5.1)
[2021-12-29 07:04] LABS: BUN/Creatinine Ratio 21.1; Total Protein 6.8 g/dL (6.4-8.2)
[2021-12-29 07:10] LABS: Bilirubin, Total 1.4 mg/dL (0.2-1.0)
[2021-12-29] MEDS ORDERED: ADENOSINE 90 MG in GIVE UN-DILUTED 0 ML IV STA (08:30)
[2021-12-29] MEDS ORDERED: ENALAPRIL MALEATE 10 MG TAB PO SCH (10:00)
[2021-12-29] MEDS: ENOXAPARIN SOD 40 MG/0.4 ML SYRINGE SC SCH (10:16)
[2021-12-29] MEDS: ASPirin-EC 81 mg tab PO SCH (10:18)
[2021-12-29] MEDS: amLODIPine BESYLATE 5 MG TAB PO SCH (10:18)
[2021-12-29] MEDS: SACUBITRIL-VALSARTAN 24mg/26mg TAB PO SCH ×2 (10:18→23:07)
[2021-12-29] MEDS: CARVEDILOL 12.5 MG TAB PO SCH ×2 (10:18→23:06)
[2021-12-29] MEDS ORDERED: DEXTROSE (50%) 50ML SYRG IV PRN (11:15)
[2021-12-29] MEDS: ACCU-CHEK COMFORT CURVE STRIP VI SCH ×3 (13:16→23:11)
[2021-12-29] MEDS: InsuLIN REG 1unit/0.01ml Soln (100units/ml) SC SCH ×3 (13:16→23:09)
[2021-12-29] MEDS ORDERED: LACTULOSE 20Gm/30ML SOLN PO PRN (18:00)
[2021-12-29] MEDS ORDERED: SENNA 8.6 MG TAB PO SCH (22:00)
[2021-12-29] MEDS: DOCUSATE SOD 100 MG CAP PO SCH (23:07)
[2021-12-30 05:00] VITALS: BP 119/67
[2021-12-30] MEDS: FUROSEMIDE 40 MG/4 ML VIAL IV SCH (06:14)
[2021-12-30] MEDS: InsuLIN REG 1unit/0.01ml Soln (100units/ml) SC SCH ×2 (06:16→11:20)
[2021-12-30] MEDS: ACCU-CHEK COMFORT CURVE STRIP VI SCH ×2 (06:18→11:20)
[2021-12-30 09:28] VITALS: BP 115/62
[2021-12-30] MEDS: DOCUSATE SOD 100 MG CAP PO SCH (09:55)
[2021-12-30] MEDS: CARVEDILOL 12.5 MG TAB PO SCH (09:56)
[2021-12-30] MEDS: ASPirin-EC 81 mg tab PO SCH (09:56)
[2021-12-30] MEDS: SACUBITRIL-VALSARTAN 24mg/26mg TAB PO SCH (09:56)
[2021-12-30] MEDS: amLODIPine BESYLATE 5 MG TAB PO SCH (09:57)
[2021-12-30 10:00] VITALS: BP 115/62
[2021-12-30] MEDS: ENOXAPARIN SOD 40 MG/0.4 ML SYRINGE SC SCH (10:04)
[2021-12-30 10:43] VITALS: BP 115/62
== END 2021-12-30 13:29 | disposition home or self-care (01) | DRG 194 ==
LOC: EDBD 07:51 → ER 07:51 → TELE 11:23 → TELE-EAST 16:12
PROVIDERS: ADMIT Internal Medicine; ATTEND Internal Medicine
DX: I13.0 Hypertensive heart and chronic kidney disease with heart failure and stage 1 through stage 4 chronic kidney disease, or unspecified chronic kidney disease (principal); I42.8 Other cardiomyopathies; E11.22 Type 2 diabetes mellitus with diabetic chronic kidney disease; I50.23 Acute on chronic systolic (congestive) heart failure; I16.0 Hypertensive urgency; I45.10 Unspecified right bundle-branch block; E66.01 Morbid (severe) obesity due to excess calories; I42.9 Cardiomyopathy, unspecified; N18.9 Chronic kidney disease, unspecified; Z96.659 Presence of unspecified artificial knee joint; Z20.822 Contact with and (suspected) exposure to COVID-19; F10.10 Alcohol abuse, uncomplicated; Y90.9 Presence of alcohol in blood, level not specified; Z91.19 Patient's noncompliance with other medical treatment and regimen; Z83.3 Family history of diabetes mellitus; Z91.14 Patient's other noncompliance with medication regimen; Z68.36 Body mass index [BMI] 36.0-36.9, adult; Z79.84 Long term (current) use of oral hypoglycemic drugs
CPT/HCPCS: 36415; 71045; 78452; 80053; 81001; 82962; 83880; 84484; 85025; 85610; 85730; 87426; 93005; 93017; 93306; 96365; 96375; 99291; G0378; J0153; J1815; J3490

== ENCOUNTER 2022-03-30 04:37 | Inpatient (IN) | payer MEDICAID ==
[~2022-03-30] VITALS: Ht 170.2 cm; Wt 103.0 kg
[~2022-03-30 04:37] MED LIST changes: +INSU1INJ19 SC
[2022-03-30 05:35] LABS: Basophils # (auto) 0.1 10 ^3/uL (0-0.2); Basophils % (auto) 0.8 % (0.0-2.0); Eosinophils # (auto) 0.5 10 ^3/uL (0-0.8); Eosinophils % (auto) 3.5 % (0.0-7.0); Hematocrit 41.1 % (41.0-53.0); Hemoglobin 13.7 g/dL (13.5-17.5); Lymphocytes # (auto) 1.2 10 ^3/uL (0.4-5.4); Lymphocytes % (auto) 8.2 % (10.0-50.0); Mean Corpuscular Hemoglobin 28.8 pg (28.0-32.0); Mean Corpuscular Hgb Conc. 33.4 g/dL (32.0-36.0); Mean Corpuscular Volume 86.1 fL (80.0-100.0); Monocytes # (auto) 0.6 10 ^3/uL (0-1.3); Monocytes % (auto) 3.9 % (0.0-12.0); Neutrophils # (auto) 12.1 10 ^3/uL (1.6-8.6); Neutrophils % (auto) 83.6 % (37.0-80.0); Nucleated Red Blood Cells % 0.1 %; Red Blood Cells 4.77 10^6/uL (4.5-5.90); Red Cell Distribution Width 15.7 % (11.8-14.3); White Blood Cell 14.5 10^3/uL (4.4-10.8)
[2022-03-30 05:53] LABS: Albumin 3.3 g/dL (3.4-5.0); Calcium 8.5 mg/dL (8.5-10.1); Potassium 4.1 mmol/L (3.5-5.1)
[2022-03-30 05:57] LABS: Bilirubin, Total 1.1 mg/dL (0.2-1.0); Total Protein 7.1 g/dL (6.4-8.2)
[2022-03-30] MEDS ORDERED: ASPirin 325 MG TAB PO ONE (06:15)
[2022-03-30] MEDS ORDERED: NITROGLYCERIN 0.4 MG SL TAB SL ONE ×2 (07:29→07:30)
[2022-03-30] MEDS ORDERED: MORPHINE SULFATE INJ 2 MG/ml SYRG ONE (07:29)
[2022-03-30] MEDS ORDERED: ONDANSETRON HCL 4 MG/2 ML VIAL IV ONE (07:30)
[2022-03-30] MEDS ORDERED: ONDANSETRON HCL 4 MG/2 ML VIAL ONE (07:30)
[2022-03-30] MEDS ORDERED: ENOXAPARIN SOD 80 MG/0.8ML SYRINGE SC ONE (07:30)
[2022-03-30] MEDS: MORPHINE SULFATE INJ 2 MG/ml SYRG IV PRN ×3 (07:43→10:55)
[2022-03-30] MEDS ORDERED: METOPROLOL TARTRATE 1MG/1ML-5ML VIAL IV ONE (08:45)
[2022-03-30] MEDS ORDERED: IOHEXOL 350 MG/ML 100ML IJ ONE (08:51)
[2022-03-30] MEDS ORDERED: hydrALAZINE HCL 20 MG/ML VL IV ONE (10:00)
[2022-03-30] MEDS ORDERED: FUROSEMIDE 40 MG/4 ML VIAL IV ONE (10:30)
[2022-03-30 11:33] LABS: INR 1.17 (0.9-1.15)
[2022-03-30] MEDS ORDERED: DOCUSATE SOD 100 MG CAP PO PRN (11:45)
[2022-03-30] MEDS ORDERED: ACETAMINOPHEN 325 MG TAB PO PRN (11:45)
[2022-03-30] MEDS ORDERED: MORPHINE SULFATE INJ 2 MG/ml SYRG IV PRN (11:45)
[2022-03-30] MEDS ORDERED: HYDROcodone-ACET 5/325MG TAB PO PRN (11:45)
[2022-03-30] MEDS ORDERED: NITROGLYCERIN 0.4 MG SL TAB SL PRN (11:45)
[2022-03-30] MEDS ORDERED: fentaNYL CITRATE 100 MCG/2 ML VL ONE (11:59)
[2022-03-30] MEDS ORDERED: MIDAZOLAM HCL 2MG/2ML 2ml VIAL (1mg/ml) ONE (11:59)
[2022-03-30] MEDS ORDERED: LIDOCAINE 2%HCL (LOCAL ANESTH.) INJ 10ml MDV ONE (12:00)
[2022-03-30] MEDS ORDERED: ANGIOMAX 250 MG VIAL IV ONE (12:00)
[2022-03-30] MEDS ORDERED: IODIXANOL 320MG/ML 100ML BTL IV ONE (12:00)
[2022-03-30] MEDS ORDERED: SODIUM CHL 0.9% 0 ML ONE (12:00)
[2022-03-30] MEDS ORDERED: HYDROmorphone HCL 2 MG/ML VL/or syr ONE (12:04)
[2022-03-30 12:41] LABS: Cholesterol 129 mg/dL (< 200); HDL Cholesterol 46 mg/dL (40-59); LDL Cholesterol 80 mg/dL (< 100); Triglycerides 98 mg/dL (< 150)
[2022-03-30] MEDS ORDERED: NITROGLYCERIN 0.4MG/DOSE SPRAY 4.9GM ONE (12:53)
[2022-03-30] MEDS: DOBUTamine 1000MCG/ML 250 ML IV SCH (13:15)
[2022-03-30] MEDS ORDERED: FUROSEMIDE 20 MG/2 ML VIAL IV ONE (13:15)
[2022-03-30] MEDS ORDERED: DIGOXIN 0.125 MG TAB PO ONE (13:15)
[2022-03-30] MEDS: ONDANSETRON HCL 4 MG/2 ML VIAL IV PRN ×2 (13:21→13:53)
[2022-03-30] MEDS ORDERED: DOBUTamine 1000MCG/ML 250 ML IV ONE (13:28)
[2022-03-30] MEDS ORDERED: chlordiazePOXIDE HCL 5 MG CAP PO PRN (13:30)
[2022-03-30] MEDS ORDERED: DEXTROSE (50%) 50ML SYRG IV PRN (13:30)
[2022-03-30] MEDS: ATORVASTATIN 20 MG TAB PO SCH (14:05)
[2022-03-30] MEDS: INSULIN LANTUS (GLARGINE) 1 /0.01ml (100units/ml) SC SCH (14:10)
[2022-03-30] MEDS: hydrALAZINE HCL 20 MG/ML VL IV PRN (14:59)
[2022-03-30] MEDS ORDERED: cloNIDine HCL 0.1 MG TAB PO PRN (15:45)
[2022-03-30 16:43] VITALS: BP 155/98
[2022-03-30] MEDS: ACCU-CHEK COMFORT CURVE STRIP VI SCH ×2 (17:20→21:51)
[2022-03-30] MEDS: InsuLIN REG 1unit/0.01ml Soln (100units/ml) SC SCH ×2 (18:18→22:07)
[2022-03-30] MEDS: FUROSEMIDE 40 MG TAB PO SCH (18:19)
[2022-03-30] MEDS: CARVEDILOL 12.5 MG TAB PO SCH (21:50)
[2022-03-30] MEDS: POTASSIUM CHL 20 Meq TABLET PO SCH (21:51)
[2022-03-30] MEDS ORDERED: SACUBITRIL-VALSARTAN 24mg/26mg TAB PO SCH (22:00)
[2022-03-30 22:05] VITALS: BP 137/84
[2022-03-30] MEDS: FUROSEMIDE 20 MG/2 ML VIAL IV SCH (22:08)
[2022-03-31] MEDS: hydrALAZINE HCL 20 MG/ML VL IV PRN (00:05)
[2022-03-31 01:00] VITALS: BP 144/91
[2022-03-31] MEDS: DOBUTamine 1000MCG/ML 250 ML IV SCH (03:40)
[2022-03-31 05:00] VITALS: BP 134/90
[2022-03-31 05:00] LABS: Basophils # (auto) 0.1 10 ^3/uL (0-0.2); Basophils % (auto) 0.8 % (0.0-2.0); Eosinophils # (auto) 0.1 10 ^3/uL (0-0.8); Eosinophils % (auto) 0.6 % (0.0-7.0); Hematocrit 41.2 % (41.0-53.0); Hemoglobin 13.8 g/dL (13.5-17.5); Lymphocytes % (auto) 6.5 % (10.0-50.0); Mean Corpuscular Hemoglobin 28.9 pg (28.0-32.0); Mean Corpuscular Hgb Conc. 33.4 g/dL (32.0-36.0); Mean Corpuscular Volume 86.4 fL (80.0-100.0); Monocytes # (auto) 0.8 10 ^3/uL (0-1.3); Monocytes % (auto) 5.1 % (0.0-12.0); Nucleated Red Blood Cells % 0.1 %; Red Blood Cells 4.77 10^6/uL (4.5-5.90); Red Cell Distribution Width 15.7 % (11.8-14.3); White Blood Cell 16.1 10^3/uL (4.4-10.8)
[2022-03-31] MEDS: FUROSEMIDE 40 MG TAB PO SCH ×2 (05:26→18:02)
[2022-03-31] MEDS: ACCU-CHEK COMFORT CURVE STRIP VI SCH ×4 (05:27→21:29)
[2022-03-31 05:29] LABS: BUN/Creatinine Ratio 21.9; Calcium 9.2 mg/dL (8.5-10.1); Potassium 3.8 mmol/L (3.5-5.1)
[2022-03-31] MEDS: InsuLIN REG 1unit/0.01ml Soln (100units/ml) SC SCH ×4 (06:22→21:33)
[2022-03-31] MEDS: FUROSEMIDE 20 MG/2 ML VIAL IV SCH (08:46)
[2022-03-31 09:30] VITALS: BP 159/99
[2022-03-31] MEDS: CARVEDILOL 12.5 MG TAB PO SCH ×2 (09:49→21:29)
[2022-03-31] MEDS: SACUBITRIL-VALSARTAN 24mg/26mg TAB PO SCH ×2 (09:49→21:29)
[2022-03-31] MEDS: DIGOXIN 0.125 MG TAB PO SCH (09:50)
[2022-03-31] MEDS: ATORVASTATIN 20 MG TAB PO SCH (09:50)
[2022-03-31] MEDS: POTASSIUM CHL 20 Meq TABLET PO SCH ×2 (09:50→21:29)
[2022-03-31] MEDS: ASPirin 81 mg TAB PO SCH (09:51)
[2022-03-31] MEDS ORDERED: ENALAPRIL MALEATE 2.5 MG TAB PO SCH (10:00)
[2022-03-31] MEDS: INSULIN LANTUS (GLARGINE) 1 /0.01ml (100units/ml) SC SCH (10:01)
[2022-03-31 12:35] VITALS: BP 138/90
[2022-03-31 16:53] VITALS: BP 133/94
[2022-03-31] MEDS ORDERED: MILRINONE 20MG/100ML 100 ML IV SCH (18:30)
[2022-03-31] MEDS: DOXYCYCLINE 100MG/250ML 250 ML IV SCH (18:54)
[2022-03-31] MEDS: MILRINONE 20MG/100ML 100 ML IV SCH (19:20)
[2022-03-31 22:00] VITALS: BP 157/107
[2022-04-01] MEDS: MILRINONE 20MG/100ML 100 ML IV SCH ×2 (03:11→11:56)
[2022-04-01 05:00] VITALS: BP 120/70
[2022-04-01] MEDS: ACCU-CHEK COMFORT CURVE STRIP VI SCH ×4 (05:40→21:44)
[2022-04-01] MEDS: FUROSEMIDE 40 MG TAB PO SCH ×2 (05:40→18:11)
[2022-04-01] MEDS: DOXYCYCLINE 100MG/250ML 250 ML IV SCH ×2 (05:40→18:12)
[2022-04-01] MEDS: InsuLIN REG 1unit/0.01ml Soln (100units/ml) SC SCH ×4 (05:49→21:56)
[2022-04-01 08:07] LABS: Basophils # (auto) 0.1 10 ^3/uL (0-0.2); Basophils % (auto) 0.4 % (0.0-2.0); Eosinophils # (auto) 0.2 10 ^3/uL (0-0.8); Eosinophils % (auto) 1.4 % (0.0-7.0); Hematocrit 42.3 % (41.0-53.0); Hemoglobin 14.2 g/dL (13.5-17.5); Lymphocytes % (auto) 5.7 % (10.0-50.0); Mean Corpuscular Hemoglobin 28.6 pg (28.0-32.0); Mean Corpuscular Hgb Conc. 33.6 g/dL (32.0-36.0); Monocytes # (auto) 0.9 10 ^3/uL (0-1.3); Monocytes % (auto) 5.4 % (0.0-12.0); Neutrophils # (auto) 14.7 10 ^3/uL (1.6-8.6); Neutrophils % (auto) 87.1 % (37.0-80.0); Nucleated Red Blood Cells % 0.1 %; Red Blood Cells 4.98 10^6/uL (4.5-5.90); Red Cell Distribution Width 15.2 % (11.8-14.3); White Blood Cell 16.9 10^3/uL (4.4-10.8)
[2022-04-01 08:28] LABS: BUN/Creatinine Ratio 18.7; Calcium 8.8 mg/dL (8.5-10.1); Potassium 3.9 mmol/L (3.5-5.1)
[2022-04-01 08:45] VITALS: BP 115/86
[2022-04-01 08:54] LABS: Urine WBC None Seen /hpf (0 - 3)
[2022-04-01 09:04] LABS: Urine Bacteria NONE SEEN /hpf (None Seen); Urine Blood Negative /uL (Negative); Urine Specific Gravity 1.009 (1.001-1.035)
[2022-04-01] MEDS: ATORVASTATIN 20 MG TAB PO SCH (09:47)
[2022-04-01] MEDS: SACUBITRIL-VALSARTAN 24mg/26mg TAB PO SCH ×2 (09:48→21:43)
[2022-04-01] MEDS: POTASSIUM CHL 20 Meq TABLET PO SCH ×2 (09:48→21:44)
[2022-04-01] MEDS: ASPirin 81 mg TAB PO SCH (09:49)
[2022-04-01] MEDS: DIGOXIN 0.125 MG TAB PO SCH (09:49)
[2022-04-01] MEDS: CARVEDILOL 12.5 MG TAB PO SCH (09:50)
[2022-04-01] MEDS: INSULIN LANTUS (GLARGINE) 1 /0.01ml (100units/ml) SC SCH ×2 (09:59→21:57)
[2022-04-01] MEDS ORDERED: FOLIC ACID 1 MG, MULTIPLE VITAMIN 10 ML, MAGNESIUM SULF SDV 50% 8 MEQ, THIAMINE INJ 100... INJ ONE ×5 (12:00)
[2022-04-01 13:00] VITALS: BP 110/68
[2022-04-01] MEDS ORDERED: VANCOMYCIN 1GM/250ML 250 ML IV ONE (14:15)
[2022-04-01] MEDS ORDERED: CHOLECALCIFEROL (VITD3) 2,000 UNIT CAP/TAB PO ONE (16:00)
[2022-04-01] MEDS ORDERED: levoFLOXacin 500 MG TAB PO ONE (16:00)
[2022-04-01 19:10] LABS: Hepatitis C Antibody Negative (Negative)
[2022-04-01] MEDS: CARVEDILOL 3.125 MG TAB PO SCH (21:43)
[2022-04-01 22:00] VITALS: BP 130/96
[2022-04-02 05:00] VITALS: BP 123/100
[2022-04-02 05:17] LABS: Basophils # (auto) 0.1 10 ^3/uL (0-0.2); Basophils % (auto) 0.8 % (0.0-2.0); Eosinophils # (auto) 0.3 10 ^3/uL (0-0.8); Eosinophils % (auto) 1.8 % (0.0-7.0); Hematocrit 41.3 % (41.0-53.0); Lymphocytes # (auto) 1.1 10 ^3/uL (0.4-5.4); Lymphocytes % (auto) 6.8 % (10.0-50.0); Mean Corpuscular Hemoglobin 28.7 pg (28.0-32.0); Mean Corpuscular Volume 84.3 fL (80.0-100.0); Monocytes % (auto) 6.4 % (0.0-12.0); Neutrophils # (auto) 13.6 10 ^3/uL (1.6-8.6); Neutrophils % (auto) 84.2 % (37.0-80.0); Red Cell Distribution Width 15.5 % (11.8-14.3); White Blood Cell 16.1 10^3/uL (4.4-10.8)
[2022-04-02 05:35] LABS: BUN/Creatinine Ratio 24.5; Calcium 8.7 mg/dL (8.5-10.1)
[2022-04-02] MEDS: FUROSEMIDE 40 MG TAB PO SCH ×2 (05:51→18:00)
[2022-04-02] MEDS: DOXYCYCLINE 100MG/250ML 250 ML IV SCH (05:52)
[2022-04-02] MEDS: ACCU-CHEK COMFORT CURVE STRIP VI SCH ×3 (05:52→17:00)
[2022-04-02] MEDS: InsuLIN REG 1unit/0.01ml Soln (100units/ml) SC SCH ×3 (05:55→17:00)
[2022-04-02 07:45] VITALS: BP 141/81
[2022-04-02 08:00] VITALS: BP 141/81
[2022-04-02] MEDS ORDERED: THIAMINE HCL 100 MG TAB PO SCH (10:00)
[2022-04-02] MEDS ORDERED: CHOLECALCIFEROL (VITD3) 2,000 UNIT CAP/TAB PO SCH (10:00)
[2022-04-02] MEDS ORDERED: FOLIC ACID 1 MG TAB PO SCH (10:00)
[2022-04-02] MEDS ORDERED: levoFLOXacin 500 MG TAB PO SCH (10:00)
[2022-04-02] MEDS: DIGOXIN 0.125 MG TAB PO SCH (10:37)
[2022-04-02] MEDS: SACUBITRIL-VALSARTAN 24mg/26mg TAB PO SCH (10:37)
[2022-04-02] MEDS: POTASSIUM CHL 20 Meq TABLET PO SCH (10:38)
[2022-04-02] MEDS: ASPirin 81 mg TAB PO SCH (10:39)
[2022-04-02] MEDS: CARVEDILOL 3.125 MG TAB PO SCH (10:39)
[2022-04-02] MEDS: ATORVASTATIN 20 MG TAB PO SCH (10:40)
[2022-04-02] MEDS: INSULIN LANTUS (GLARGINE) 1 /0.01ml (100units/ml) SC SCH (10:51)
[2022-04-02 12:00] VITALS: BP 124/74
[2022-04-02] MEDS ORDERED: LEVO-28 PO (12:47)
[2022-04-02] MEDS ORDERED: CAR3125T PO (12:47)
[2022-04-02] MEDS ORDERED: SACU1TAB PO (12:47)
[2022-04-02] MEDS ORDERED: THIA100T10 PO (12:47)
[2022-04-02] MEDS ORDERED: DIGO1TAB48 PO (12:47)
[2022-04-02] MEDS ORDERED: FOLI1TAB6 PO (12:47)
[2022-04-02 13:52] VITALS: BP_SYST 124; BP_SYST 128; BP_DIAS 74; BP_DIAS 97
[2022-04-02 16:00] VITALS: BP 119/87
== END 2022-04-02 18:00 | disposition home or self-care (01) | DRG 190 ==
LOC: ER 04:37 → EDBD 04:37 → OVERFLOW 11:43 → TELE-CENTR 17:15
PROVIDERS: ADMIT Internal Medicine; ATTEND Internal Medicine
PROC: 4A023N7 Measurement of Cardiac Sampling and Pressure, Left Heart, Percutaneous Approach (ICD-10-PCS; principal; 2022-03-30)
PROC: B2111ZZ Fluoroscopy of Multiple Coronary Arteries using Low Osmolar Contrast (ICD-10-PCS; 2022-03-30)
PROC: B2151ZZ Fluoroscopy of Left Heart using Low Osmolar Contrast (ICD-10-PCS; 2022-03-30)
DX: I21.4 Non-ST elevation (NSTEMI) myocardial infarction (principal); I50.23 Acute on chronic systolic (congestive) heart failure; N17.9 Acute kidney failure, unspecified; I42.6 Alcoholic cardiomyopathy; J18.9 Pneumonia, unspecified organism; E87.1 Hypo-osmolality and hyponatremia; I13.0 Hypertensive heart and chronic kidney disease with heart failure and stage 1 through stage 4 chronic kidney disease, or unspecified chronic kidney disease; I50.20 Unspecified systolic (congestive) heart failure; I48.91 Unspecified atrial fibrillation; E11.22 Type 2 diabetes mellitus with diabetic chronic kidney disease; Z20.822 Contact with and (suspected) exposure to COVID-19; I24.9 Acute ischemic heart disease, unspecified; Z98.61 Coronary angioplasty status; I16.0 Hypertensive urgency; E11.40 Type 2 diabetes mellitus with diabetic neuropathy, unspecified; N18.30 Chronic kidney disease, stage 3 unspecified; N28.1 Cyst of kidney, acquired; E11.65 Type 2 diabetes mellitus with hyperglycemia; E66.01 Morbid (severe) obesity due to excess calories; E78.5 Hyperlipidemia, unspecified; F10.10 Alcohol abuse, uncomplicated; Z68.35 Body mass index [BMI] 35.0-35.9, adult; Z79.899 Other long term (current) drug therapy; Z80.0 Family history of malignant neoplasm of digestive organs; Z83.3 Family history of diabetes mellitus; Z91.14 Patient's other noncompliance with medication regimen; Z79.84 Long term (current) use of oral hypoglycemic drugs
CPT/HCPCS: 36415; 71045; 71275; 76775; 80048; 80053; 80061; 80162; 81001; 82306; 82962; 83880; 83970; 84100; 84484; 85025; 85379; 85610; 85730; 86803; 87040; 87340; 93005; 93458; 93970; 96372; 96374; 96375; 99152; 99153; 99291; G0378; J1815; J2001; J2250; J2405; J3490; Q9967

== ENCOUNTER 2022-04-07 00:38 | Emergency (ER) | payer MEDICAID ==
[~2022-04-07] VITALS: Ht 170.2 cm; Wt 104.3 kg
[~2022-04-07 00:38] MED LIST changes: +CAR3125T PO; -CARV12.544 PO; +DIGO1TAB48 PO; -ENAL2.5T7 PO; +FOLI1TAB6 PO; +LEVO-28 PO; +SACU1TAB PO; +THIA100T10 PO
[2022-04-07 01:00] VITALS: BP 169/116
== END 2022-04-07 01:36 | disposition home or self-care (01) ==
LOC: ER 00:41
DX: S30.1XXA Contusion of abdominal wall, initial encounter (principal); S50.12XA Contusion of left forearm, initial encounter; S50.11XA Contusion of right forearm, initial encounter; F10.10 Alcohol abuse, uncomplicated; I11.0 Hypertensive heart disease with heart failure; I50.9 Heart failure, unspecified; E11.9 Type 2 diabetes mellitus without complications; I25.2 Old myocardial infarction; Z79.4 Long term (current) use of insulin; Z79.82 Long term (current) use of aspirin; Z79.899 Other long term (current) drug therapy; X58.XXXA Exposure to other specified factors, initial encounter; Y93.89 Activity, other specified; Y92.89 Other specified places as the place of occurrence of the external cause; Y99.8 Other external cause status; Y90.9 Presence of alcohol in blood, level not specified

== ENCOUNTER 2022-05-05 14:47 | Inpatient (IN) | payer MEDICAID ==
[~2022-05-05] VITALS: Ht 170.2 cm; Wt 96.0 kg
[2022-05-05] MEDS ORDERED: FUROSEMIDE 40 MG/4 ML VIAL IV ONE (15:30)
[2022-05-05] MEDS ORDERED: ASPirin 81 mg TAB PO ONE (15:30)
[2022-05-05 15:32] LABS: Basophils # (auto) 0 10 ^3/uL (0-0.2); Basophils % (auto) 0.4 % (0.0-2.0); Eosinophils # (auto) 0.1 10 ^3/uL (0-0.8); Eosinophils % (auto) 0.8 % (0.0-7.0); Hematocrit 42.3 % (41.0-53.0); Hemoglobin 13.4 g/dL (13.5-17.5); Lymphocytes # (auto) 0.9 10 ^3/uL (0.4-5.4); Lymphocytes % (auto) 10.2 % (10.0-50.0); Mean Corpuscular Hgb Conc. 31.6 g/dL (32.0-36.0); Mean Corpuscular Volume 88.4 fL (80.0-100.0); Monocytes # (auto) 0.5 10 ^3/uL (0-1.3); Monocytes % (auto) 6.1 % (0.0-12.0); Neutrophils # (auto) 7.4 10 ^3/uL (1.6-8.6); Neutrophils % (auto) 82.5 % (37.0-80.0); Nucleated Red Blood Cells % 0.3 %; Red Blood Cells 4.78 10^6/uL (4.5-5.90); Red Cell Distribution Width 18.7 % (11.8-14.3)
[2022-05-05 15:50] LABS: Albumin 3.2 g/dL (3.4-5.0); Anion Gap 15 (5-15); Blood Urea Nitrogen 42 mg/dL (7-18); Carbon Dioxide 16 mmol/L (21-32); Chloride 108 mmol/L (98-107); Glucose 307 mg/dL (74-106); Potassium 3.6 mmol/L (3.5-5.1); Sodium 139 mmol/L (136-145)
[2022-05-05 15:51] LABS: INR 1.46 (0.9-1.15); Partial Thromboplastin Time 29.6 sec (23.6-33.0)
[2022-05-05 15:52] LABS: Alanine Aminotransferase 73 U/L (16-61); BUN/Creatinine Ratio 23.5; GFR African American 50 mL/min; GFR Non-African American 42 mL/min
[2022-05-05 16:04] LABS: Alkaline Phosphatase 160 U/L (45-117); Aspartate Aminotransferase 63 U/L (15-37); Bilirubin, Total 1.9 mg/dL (0.2-1.0); Total Protein 6.2 g/dL (6.4-8.2)
[2022-05-05] MEDS: hydrALAZINE HCL 20 MG/ML VL IV PRN (20:27)
[2022-05-05 20:39] LABS: Urine Bacteria FEW /hpf (None Seen); Urine Blood Negative /uL (Negative); Urine Mucus FEW (None Seen); Urine Specific Gravity 1.006 (1.001-1.035); Urine WBC <1 /hpf (0 - 3)
[2022-05-05] MEDS: BUMETANIDE 2.5mg/10ml (0.25 mg/ml) INJ IV SCH (22:26)
[2022-05-05 23:13] VITALS: BP 168/107
[2022-05-05 23:14] VITALS: BP 160/100
[2022-05-06 05:20] VITALS: BP 158/95
[2022-05-06 06:44] LABS: Basophils # (auto) 0 10 ^3/uL (0-0.2); Basophils % (auto) 0.6 % (0.0-2.0); Eosinophils # (auto) 0.1 10 ^3/uL (0-0.8); Eosinophils % (auto) 1.7 % (0.0-7.0); Hematocrit 41.8 % (41.0-53.0); Hemoglobin 13.4 g/dL (13.5-17.5); Lymphocytes # (auto) 0.8 10 ^3/uL (0.4-5.4); Lymphocytes % (auto) 9.8 % (10.0-50.0); Mean Corpuscular Hemoglobin 28.1 pg (28.0-32.0); Mean Corpuscular Volume 87.7 fL (80.0-100.0); Monocytes # (auto) 0.5 10 ^3/uL (0-1.3); Neutrophils # (auto) 6.4 10 ^3/uL (1.6-8.6); Neutrophils % (auto) 81.9 % (37.0-80.0); Nucleated Red Blood Cells % 0.3 %; Red Blood Cells 4.77 10^6/uL (4.5-5.90); Red Cell Distribution Width 18.5 % (11.8-14.3); White Blood Cell 7.8 10^3/uL (4.4-10.8)
[2022-05-06 07:02] LABS: Potassium 3.1 mmol/L (3.5-5.1)
[2022-05-06 07:07] LABS: BUN/Creatinine Ratio 21.1; Bilirubin, Total 1.9 mg/dL (0.2-1.0)
[2022-05-06] MEDS: hydrALAZINE HCL 20 MG/ML VL IV PRN (08:28)
[2022-05-06 08:51] VITALS: BP 169/99
[2022-05-06] MEDS ORDERED: DEXTROSE (50%) 50ML SYRG IV PRN (09:00)
[2022-05-06] MEDS: ENOXAPARIN SOD 30 MG/0.3 ML SYRINGE SC SCH (10:00)
[2022-05-06] MEDS: BUMETANIDE 2.5mg/10ml (0.25 mg/ml) INJ IV SCH ×2 (10:00→21:58)
[2022-05-06] MEDS ORDERED: OPTISON 3ml Vial for INJ IV ONE (11:25)
[2022-05-06] MEDS ORDERED: DOBUTamine 1000MCG/ML 250 ML IV SCH (12:45)
[2022-05-06] MEDS ORDERED: CARVEDILOL 3.125 MG TAB PO ONE (12:45)
[2022-05-06] MEDS ORDERED: POTASSIUM CHL 20 Meq TABLET PO ONE (12:45)
[2022-05-06] MEDS ORDERED: THIAMINE 100mg/ml INJ (200mg/2ml VIAL) IV ONE (12:45)
[2022-05-06] MEDS: ACCU-CHEK COMFORT CURVE STRIP VI SCH ×2 (12:54→18:21)
[2022-05-06 13:00] VITALS: BP 141/99
[2022-05-06] MEDS: InsuLIN REG 1unit/0.01ml Soln (100units/ml) SC SCH ×2 (13:12→18:00)
[2022-05-06] MEDS: MAGNESIUM SULFATE 1GM/100ML 100 ML IV SCH ×2 (13:17→15:55)
[2022-05-06 16:44] VITALS: BP 147/99
[2022-05-06] MEDS: SACUBITRIL-VALSARTAN 24mg/26mg TAB PO SCH (21:58)
[2022-05-06] MEDS: POTASSIUM CHL 20 Meq TABLET PO SCH (21:59)
[2022-05-06 22:00] VITALS: BP 108/60
[2022-05-06] MEDS: CARVEDILOL 3.125 MG TAB PO SCH (22:00)
[2022-05-06] MEDS: INSULIN LANTUS (GLARGINE) 1 /0.01ml (100units/ml) SC SCH (22:12)
[2022-05-07 05:00] VITALS: BP 133/93
[2022-05-07] MEDS: InsuLIN REG 1unit/0.01ml Soln (100units/ml) SC SCH ×5 (06:00→23:50)
[2022-05-07] MEDS: ACCU-CHEK COMFORT CURVE STRIP VI SCH ×5 (06:15→23:54)
[2022-05-07 06:33] LABS: Basophils # (auto) 0.1 10 ^3/uL (0-0.2); Basophils % (auto) 0.7 % (0.0-2.0); Eosinophils # (auto) 0.3 10 ^3/uL (0-0.8); Eosinophils % (auto) 2.6 % (0.0-7.0); Hematocrit 45.4 % (41.0-53.0); Hemoglobin 14.8 g/dL (13.5-17.5); Lymphocytes # (auto) 1.5 10 ^3/uL (0.4-5.4); Lymphocytes % (auto) 12.9 % (10.0-50.0); Mean Corpuscular Hemoglobin 28.3 pg (28.0-32.0); Mean Corpuscular Hgb Conc. 32.7 g/dL (32.0-36.0); Mean Corpuscular Volume 86.7 fL (80.0-100.0); Monocytes % (auto) 8.5 % (0.0-12.0); Neutrophils # (auto) 8.9 10 ^3/uL (1.6-8.6); Neutrophils % (auto) 75.3 % (37.0-80.0); Nucleated Red Blood Cells % 0.2 %; Red Blood Cells 5.24 10^6/uL (4.5-5.90); Red Cell Distribution Width 18.3 % (11.8-14.3); White Blood Cell 11.8 10^3/uL (4.4-10.8)
[2022-05-07 06:36] LABS: Albumin 3.1 g/dL (3.4-5.0); Calcium 8.4 mg/dL (8.5-10.1); Potassium 3.1 mmol/L (3.5-5.1)
[2022-05-07 06:40] LABS: BUN/Creatinine Ratio 20.5; Bilirubin, Total 1.8 mg/dL (0.2-1.0); Total Protein 6.6 g/dL (6.4-8.2)
[2022-05-07 08:42] VITALS: BP 129/78
[2022-05-07] MEDS: POTASSIUM CHL 20 Meq TABLET PO SCH ×2 (09:48→22:00)
[2022-05-07] MEDS: SACUBITRIL-VALSARTAN 24mg/26mg TAB PO SCH ×2 (09:49→22:00)
[2022-05-07] MEDS: ASPirin 81 mg TAB PO SCH (09:49)
[2022-05-07] MEDS: CARVEDILOL 3.125 MG TAB PO SCH ×2 (09:49→22:00)
[2022-05-07] MEDS: BUMETANIDE 2.5mg/10ml (0.25 mg/ml) INJ IV SCH ×2 (09:49→22:00)
[2022-05-07] MEDS: THIAMINE 100mg/ml INJ (200mg/2ml VIAL) IV SCH (09:50)
[2022-05-07] MEDS: ENOXAPARIN SOD 30 MG/0.3 ML SYRINGE SC SCH (09:50)
[2022-05-07] MEDS ORDERED: POTASSIUM EFFERVESENT TAB 25 MEQ PO ONE (11:15)
[2022-05-07] MEDS ORDERED: SPIRONOLACTONE 25 MG TAB PO ONE (11:15)
[2022-05-07 13:03] VITALS: BP 151/91
[2022-05-07 15:52] LABS: Urine Bacteria NONE SEEN /hpf (None Seen); Urine Blood Negative /uL (Negative); Urine Specific Gravity 1.009 (1.001-1.035); Urine WBC <1 /hpf (0 - 3)
[2022-05-07 17:00] VITALS: BP 136/97
[2022-05-07 22:00] VITALS: BP 135/84
[2022-05-07] MEDS: INSULIN LANTUS (GLARGINE) 1 /0.01ml (100units/ml) SC SCH (22:00)
[2022-05-08 05:00] VITALS: BP 124/84
[2022-05-08] MEDS: InsuLIN REG 1unit/0.01ml Soln (100units/ml) SC SCH ×4 (06:00→22:21)
[2022-05-08] MEDS: ACCU-CHEK COMFORT CURVE STRIP VI SCH ×4 (06:20→22:25)
[2022-05-08 06:21] LABS: Basophils # (auto) 0.1 10 ^3/uL (0-0.2); Basophils % (auto) 0.7 % (0.0-2.0); Eosinophils # (auto) 0.4 10 ^3/uL (0-0.8); Eosinophils % (auto) 3.2 % (0.0-7.0); Hematocrit 48.9 % (41.0-53.0); Hemoglobin 15.8 g/dL (13.5-17.5); Lymphocytes # (auto) 1.4 10 ^3/uL (0.4-5.4); Lymphocytes % (auto) 11.7 % (10.0-50.0); Mean Corpuscular Hemoglobin 28.1 pg (28.0-32.0); Mean Corpuscular Hgb Conc. 32.2 g/dL (32.0-36.0); Mean Corpuscular Volume 87.3 fL (80.0-100.0); Monocytes # (auto) 1.1 10 ^3/uL (0-1.3); Neutrophils # (auto) 8.9 10 ^3/uL (1.6-8.6); Neutrophils % (auto) 75.4 % (37.0-80.0); Nucleated Red Blood Cells % 0.1 %; Red Cell Distribution Width 18.4 % (11.8-14.3); White Blood Cell 11.8 10^3/uL (4.4-10.8)
[2022-05-08 09:00] VITALS: BP 147/99
[2022-05-08 09:20] LABS: BUN/Creatinine Ratio 22.1; Calcium 8.1 mg/dL (8.5-10.1); Potassium 3.3 mmol/L (3.5-5.1)
[2022-05-08 09:23] LABS: Bilirubin, Total 1.4 mg/dL (0.2-1.0); Total Protein 6.3 g/dL (6.4-8.2)
[2022-05-08] MEDS: ENOXAPARIN SOD 30 MG/0.3 ML SYRINGE SC SCH (09:50)
[2022-05-08] MEDS: ASPirin 81 mg TAB PO SCH (09:51)
[2022-05-08] MEDS: POTASSIUM CHL 20 Meq TABLET PO SCH ×2 (09:51→22:13)
[2022-05-08] MEDS: CARVEDILOL 3.125 MG TAB PO SCH ×2 (09:51→22:12)
[2022-05-08] MEDS: BUMETANIDE 2.5mg/10ml (0.25 mg/ml) INJ IV SCH ×2 (09:52→22:13)
[2022-05-08] MEDS: SPIRONOLACTONE 25 MG TAB PO SCH (09:52)
[2022-05-08] MEDS: THIAMINE 100mg/ml INJ (200mg/2ml VIAL) IV SCH (09:52)
[2022-05-08] MEDS: SACUBITRIL-VALSARTAN 24mg/26mg TAB PO SCH ×2 (10:09→22:12)
[2022-05-08 13:00] VITALS: BP 130/93
[2022-05-08 17:00] VITALS: BP 142/103
[2022-05-08 21:32] VITALS: BP 137/79
[2022-05-08] MEDS: INSULIN LANTUS (GLARGINE) 1 /0.01ml (100units/ml) SC SCH (22:21)
[2022-05-09] VITALS (10 sets, daily range): BP systolic 117–153; BP diastolic 55–116
[2022-05-09] MEDS: InsuLIN REG 1unit/0.01ml Soln (100units/ml) SC SCH ×4 (06:00→23:09)
[2022-05-09] MEDS: ACCU-CHEK COMFORT CURVE STRIP VI SCH ×4 (06:18→23:00)
[2022-05-09 06:28] LABS: Basophils # (auto) 0.1 10 ^3/uL (0-0.2); Basophils % (auto) 0.7 % (0.0-2.0); Eosinophils # (auto) 0.5 10 ^3/uL (0-0.8); Eosinophils % (auto) 4.4 % (0.0-7.0); Hematocrit 51.5 % (41.0-53.0); Hemoglobin 16.6 g/dL (13.5-17.5); Lymphocytes # (auto) 1.3 10 ^3/uL (0.4-5.4); Mean Corpuscular Hemoglobin 28.3 pg (28.0-32.0); Mean Corpuscular Hgb Conc. 32.2 g/dL (32.0-36.0); Mean Corpuscular Volume 87.8 fL (80.0-100.0); Monocytes # (auto) 0.8 10 ^3/uL (0-1.3); Monocytes % (auto) 8.1 % (0.0-12.0); Neutrophils # (auto) 7.7 10 ^3/uL (1.6-8.6); Neutrophils % (auto) 73.8 % (37.0-80.0); Nucleated Red Blood Cells % 0.2 %; Red Blood Cells 5.86 10^6/uL (4.5-5.90); Red Cell Distribution Width 18.4 % (11.8-14.3); White Blood Cell 10.4 10^3/uL (4.4-10.8)
[2022-05-09 07:20] LABS: Alanine Aminotransferase 44 U/L (16-61); Albumin 2.8 g/dL (3.4-5.0); Anion Gap 11 (5-15); Aspartate Aminotransferase 29 U/L (15-37); BUN/Creatinine Ratio 21.3; Blood Urea Nitrogen 35 mg/dL (7-18); Calcium 7.7 mg/dL (8.5-10.1); Carbon Dioxide 30 mmol/L (21-32); Chloride 98 mmol/L (98-107); GFR African American 56 mL/min; GFR Non-African American 46 mL/min; Glucose 118 mg/dL (74-106); Potassium 3.5 mmol/L (3.5-5.1); Sodium 139 mmol/L (136-145)
[2022-05-09 07:23] LABS: Alkaline Phosphatase 131 U/L (45-117); Bilirubin, Total 1.7 mg/dL (0.2-1.0); Total Protein 6.2 g/dL (6.4-8.2)
[2022-05-09] MEDS: BUMETANIDE 2.5mg/10ml (0.25 mg/ml) INJ IV SCH ×2 (09:12→21:32)
[2022-05-09] MEDS: THIAMINE 100mg/ml INJ (200mg/2ml VIAL) IV SCH (09:12)
[2022-05-09] MEDS: SPIRONOLACTONE 25 MG TAB PO SCH (09:13)
[2022-05-09] MEDS: CARVEDILOL 3.125 MG TAB PO SCH ×2 (09:13→21:36)
[2022-05-09] MEDS: SACUBITRIL-VALSARTAN 24mg/26mg TAB PO SCH ×2 (09:13→21:33)
[2022-05-09] MEDS: POTASSIUM CHL 20 Meq TABLET PO SCH ×2 (10:00→21:33)
[2022-05-09] MEDS ORDERED: fentaNYL CITRATE 100 MCG/2 ML VL ONE (14:31)
[2022-05-09] MEDS ORDERED: ANGIOMAX 250 MG VIAL IV ONE (14:31)
[2022-05-09] MEDS ORDERED: SODIUM CHL 0.9% 50 ML ONE (14:32)
[2022-05-09] MEDS ORDERED: LIDOCAINE 2%HCL (LOCAL ANESTH.) INJ 10ml MDV ONE (14:32)
[2022-05-09] MEDS ORDERED: MIDAZOLAM HCL 2MG/2ML 2ml VIAL (1mg/ml) ONE (14:32)
[2022-05-09] MEDS ORDERED: IOHEXOL 350 MG/ML 100ML IJ ONE (14:32)
[2022-05-09] MEDS ORDERED: CLOPIDOGREL 300 MG TAB ONE (15:10)
[2022-05-09] MEDS ORDERED: POTASSIUM CHL 20 Meq TABLET PO ONE (15:15)
[2022-05-09] MEDS: ASPirin 81 mg TAB PO SCH (16:53)
[2022-05-09] MEDS: INSULIN LANTUS (GLARGINE) 1 /0.01ml (100units/ml) SC SCH (23:08)
[2022-05-10 04:44] VITALS: BP 106/76
[2022-05-10] MEDS ORDERED: AMIODARONE HCL 200 MG TAB PO SCH (10:00)
[2022-05-10] MEDS ORDERED: RIVAROXABAN 10 MG TAB PO SCH (10:00)
[2022-05-10] MEDS ORDERED: CLOPIDOGREL BISULFATE 75 MG TAB PO SCH (10:00)
== END 2022-05-10 05:18 | disposition left against medical advice (07) | DRG 175 ==
LOC: EDBD 14:47 → ER 14:47 → TELE 18:11 → TELE-EAST 22:55
PROVIDERS: ADMIT Internal Medicine; ATTEND Internal Medicine
PROC: 027034Z Dilation of Coronary Artery, One Artery with Drug-eluting Intraluminal Device, Percutaneous Approach (ICD-10-PCS; principal; 2022-05-09)
PROC: 4A023N7 Measurement of Cardiac Sampling and Pressure, Left Heart, Percutaneous Approach (ICD-10-PCS; 2022-05-09)
PROC: B211YZZ Fluoroscopy of Multiple Coronary Arteries using Other Contrast (ICD-10-PCS; 2022-05-09)
DX: I13.0 Hypertensive heart and chronic kidney disease with heart failure and stage 1 through stage 4 chronic kidney disease, or unspecified chronic kidney disease (principal); N17.0 Acute kidney failure with tubular necrosis; I21.4 Non-ST elevation (NSTEMI) myocardial infarction; I47.2 Ventricular tachycardia; E87.2 Acidosis; D69.6 Thrombocytopenia, unspecified; E88.09 Other disorders of plasma-protein metabolism, not elsewhere classified; I50.21 Acute systolic (congestive) heart failure; N18.9 Chronic kidney disease, unspecified; E66.9 Obesity, unspecified; E11.22 Type 2 diabetes mellitus with diabetic chronic kidney disease; E11.65 Type 2 diabetes mellitus with hyperglycemia; E87.6 Hypokalemia; I25.5 Ischemic cardiomyopathy; Z20.822 Contact with and (suspected) exposure to COVID-19; I25.10 Atherosclerotic heart disease of native coronary artery without angina pectoris; I51.3 Intracardiac thrombosis, not elsewhere classified; Z91.19 Patient's noncompliance with other medical treatment and regimen; Z84.89 Family history of other specified conditions; Z79.899 Other long term (current) drug therapy; Z95.810 Presence of automatic (implantable) cardiac defibrillator; Z80.0 Family history of malignant neoplasm of digestive organs; Z83.3 Family history of diabetes mellitus
CPT/HCPCS: 36415; 71045; 76705; 80053; 81001; 82962; 83036; 83735; 83880; 84484; 85025; 85610; 85730; 86850; 86900; 86901; 92928; 93005; 93306; 93458; 93970; 96374; 96375; 99152; 99153; 99291; C1874; G0378; J1815; J2001; J2250; Q9956

== ENCOUNTER 2022-05-13 16:55 | Inpatient (IN) | payer MEDICAID ==
[~2022-05-13] VITALS: Ht 170.2 cm; Wt 108.5 kg
[2022-05-13] MEDS ORDERED: ONDANSETRON HCL 4 MG/2 ML VIAL ONE (17:06)
[2022-05-13] MEDS ORDERED: HEPARIN SODIUM (PORCINE) 5000 UNITS/ML 1ML VIAL ONE (17:06)
[2022-05-13] MEDS ORDERED: MORPHINE SULFATE 4 MG/ML SYR/VIAL ONE (17:06)
[2022-05-13] MEDS ORDERED: METOPROLOL TARTRATE 1MG/1ML-5ML VIAL IV ONE ×2 (17:08→17:15)
[2022-05-13] MEDS ORDERED: MORPHINE SULFATE 4 MG/ML SYR/VIAL IV ONE (17:15)
[2022-05-13] MEDS ORDERED: HEPARIN SODIUM (PORCINE) 5000 UNITS/ML 1ML VIAL IV ONE (17:15)
[2022-05-13] MEDS ORDERED: ONDANSETRON HCL 4 MG/2 ML VIAL IV ONE (17:15)
[2022-05-13] MEDS ORDERED: IOHEXOL 350 MG/ML 100ML IJ ONE ×2 (17:27→18:21)
[2022-05-13 17:36] LABS: Albumin 3.7 g/dL (3.4-5.0); Calcium 9.6 mg/dL (8.5-10.1); Magnesium 2.2 mg/dL (1.6-2.6); Potassium 4.8 mmol/L (3.5-5.1)
[2022-05-13] MEDS ORDERED: fentaNYL CITRATE 100 MCG/2 ML VL ONE (17:36)
[2022-05-13] MEDS ORDERED: ANGIOMAX 250 MG VIAL IV ONE (17:36)
[2022-05-13] MEDS ORDERED: SODIUM CHL 0.9% 50 ML ONE (17:36)
[2022-05-13] MEDS ORDERED: MIDAZOLAM HCL 2MG/2ML 2ml VIAL (1mg/ml) ONE (17:36)
[2022-05-13 17:40] LABS: Total Protein 7.9 g/dL (6.4-8.2)
[2022-05-13] MEDS ORDERED: InsuLIN REG 1unit/0.01ml Soln (100units/ml) ONE (18:14)
[2022-05-13] MEDS ORDERED: niCARdipine 25 MG/10 ML VIAL IV ONE (18:18)
[2022-05-13] MEDS ORDERED: CLOPIDOGREL 300 MG TAB ONE (18:26)
[2022-05-13] MEDS ORDERED: ASPirin 325 MG TAB ONE (18:26)
[2022-05-13] MEDS ORDERED: HYDROcodone-ACET 5/325MG TAB PO PRN (18:45)
[2022-05-13] MEDS ORDERED: NITROGLYCERIN 0.4 MG SL TAB SL PRN (18:45)
[2022-05-13] MEDS ORDERED: DEXTROSE (50%) 50ML SYRG IV PRN (18:45)
[2022-05-13] MEDS ORDERED: MORPHINE SULFATE INJ 2 MG/ml SYRG IV PRN (18:45)
[2022-05-13] MEDS ORDERED: ONDANSETRON HCL 4 MG/2 ML VIAL IV PRN (18:45)
[2022-05-13 18:49] LABS: Basophils # (auto) 0.1 10 ^3/uL (0-0.2); Basophils % (auto) 0.7 % (0.0-2.0); Eosinophils # (auto) 0.2 10 ^3/uL (0-0.8); Eosinophils % (auto) 2.1 % (0.0-7.0); Hematocrit 50.4 % (41.0-53.0); Hemoglobin 16.2 g/dL (13.5-17.5); Mean Corpuscular Hemoglobin 28.7 pg (28.0-32.0); Mean Corpuscular Hgb Conc. 32.2 g/dL (32.0-36.0); Mean Corpuscular Volume 89.3 fL (80.0-100.0); Monocytes # (auto) 0.8 10 ^3/uL (0-1.3); Monocytes % (auto) 9.1 % (0.0-12.0); Neutrophils # (auto) 6.6 10 ^3/uL (1.6-8.6); Neutrophils % (auto) 76.1 % (37.0-80.0); Nucleated Red Blood Cells % 0.5 %; Red Blood Cells 5.64 10^6/uL (4.5-5.90); Red Cell Distribution Width 18.9 % (11.8-14.3); White Blood Cell 8.6 10^3/uL (4.4-10.8)
[2022-05-13 21:00] VITALS: BP 134/94
[2022-05-13] MEDS: ACCU-CHEK COMFORT CURVE STRIP VI SCH (21:02)
[2022-05-13] MEDS: InsuLIN REG 1unit/0.01ml Soln (100units/ml) SC SCH (21:05)
[2022-05-13 21:12] LABS: INR 3.36 (0.9-1.15)
[2022-05-13 21:28] LABS: Partial Thromboplastin Time 135.9 sec (24.6-33.4)
[2022-05-13 22:55] VITALS: BP 143/95
[2022-05-14 05:00] VITALS: BP 152/98
[2022-05-14 05:25] LABS: Basophils # (auto) 0.1 10 ^3/uL (0-0.2); Basophils % (auto) 1.2 % (0.0-2.0); Eosinophils # (auto) 0.2 10 ^3/uL (0-0.8); Eosinophils % (auto) 3.6 % (0.0-7.0); Hematocrit 44.3 % (41.0-53.0); Hemoglobin 14.5 g/dL (13.5-17.5); Lymphocytes # (auto) 1.2 10 ^3/uL (0.4-5.4); Lymphocytes % (auto) 16.7 % (10.0-50.0); Mean Corpuscular Hemoglobin 28.8 pg (28.0-32.0); Mean Corpuscular Hgb Conc. 32.7 g/dL (32.0-36.0); Mean Corpuscular Volume 88.2 fL (80.0-100.0); Monocytes # (auto) 0.7 10 ^3/uL (0-1.3); Monocytes % (auto) 10.3 % (0.0-12.0); Neutrophils # (auto) 4.7 10 ^3/uL (1.6-8.6); Neutrophils % (auto) 68.2 % (37.0-80.0); Nucleated Red Blood Cells % 0.1 %; Red Blood Cells 5.03 10^6/uL (4.5-5.90); Red Cell Distribution Width 18.2 % (11.8-14.3)
[2022-05-14 05:37] LABS: Potassium 4.2 mmol/L (3.5-5.1)
[2022-05-14 05:41] LABS: BUN/Creatinine Ratio 21.5; Calcium 8.7 mg/dL (8.5-10.1)
[2022-05-14] MEDS: ACCU-CHEK COMFORT CURVE STRIP VI SCH ×4 (06:33→22:27)
[2022-05-14] MEDS: InsuLIN REG 1unit/0.01ml Soln (100units/ml) SC SCH ×4 (06:34→22:35)
[2022-05-14] MEDS: ASPirin 81 mg TAB PO SCH (08:51)
[2022-05-14] MEDS: CLOPIDOGREL BISULFATE 75 MG TAB PO SCH (08:51)
[2022-05-14] MEDS: METOPROLOL SUCCINATE XL 50 MG TAB PO SCH (08:52)
[2022-05-14 09:00] VITALS: BP 143/98
[2022-05-14] MEDS ORDERED: FUROSEMIDE 40 MG/4 ML VIAL IV ONE (12:45)
[2022-05-14] MEDS ORDERED: PANTOPRAZOLE 40 MG/10 ML VIAL INJ IV ONE (12:45)
[2022-05-14] MEDS ORDERED: ISOSORBIDE MONONITRATE ER 60 MG TAB PO ONE (12:45)
[2022-05-14] MEDS ORDERED: LOSARTAN POTASSIUM 50 MG TAB PO ONE (12:45)
[2022-05-14 13:00] VITALS: BP 146/97
[2022-05-14 17:00] VITALS: BP 104/67
[2022-05-14 22:00] VITALS: BP 109/73
[2022-05-14] MEDS: ATORVASTATIN 20 MG TAB PO SCH (22:45)
[2022-05-15 01:51] LABS: Urine Bacteria MANY /hpf (None Seen); Urine Blood Negative /uL (Negative); Urine Mucus FEW (None Seen); Urine Sperm PRESENT /hpf (None Seen); Urine WBC 3 /hpf (0 - 3)
[2022-05-15 02:11] LABS: Alcohol, Urine < 3.0 mg/dL (0-10); Amphetamine Screen, Urine POSITIVE (NEGATIVE); Barbiturate Scree,Urine NEGATIVE (NEGATIVE); Benzodiazephine Screen, Urine POSITIVE (NEGATIVE); Cannabinoid Screen, Urine NEGATIVE (NEGATIVE); Cocaine Screen, Urine NEGATIVE (NEGATIVE); Opiate Scree,Urine NEGATIVE (NEGATIVE); Phencyclidine Screen, Urine NEGATIVE (NEGATIVE)
[2022-05-15 04:59] LABS: Basophils # (auto) 0 10 ^3/uL (0-0.2); Basophils % (auto) 0.5 % (0.0-2.0); Eosinophils # (auto) 0.3 10 ^3/uL (0-0.8); Eosinophils % (auto) 4.2 % (0.0-7.0); Hematocrit 43.8 % (41.0-53.0); Hemoglobin 14.1 g/dL (13.5-17.5); Lymphocytes # (auto) 1.2 10 ^3/uL (0.4-5.4); Lymphocytes % (auto) 16.5 % (10.0-50.0); Mean Corpuscular Hemoglobin 28.3 pg (28.0-32.0); Mean Corpuscular Hgb Conc. 32.2 g/dL (32.0-36.0); Mean Corpuscular Volume 87.9 fL (80.0-100.0); Monocytes # (auto) 0.6 10 ^3/uL (0-1.3); Monocytes % (auto) 7.5 % (0.0-12.0); Neutrophils # (auto) 5.3 10 ^3/uL (1.6-8.6); Neutrophils % (auto) 71.3 % (37.0-80.0); Red Blood Cells 4.98 10^6/uL (4.5-5.90); Red Cell Distribution Width 17.7 % (11.8-14.3); White Blood Cell 7.5 10^3/uL (4.4-10.8)
[2022-05-15 05:00] VITALS: BP 117/83
[2022-05-15 05:13] LABS: Potassium 4.4 mmol/L (3.5-5.1)
[2022-05-15 05:14] LABS: BUN/Creatinine Ratio 21.6
[2022-05-15] MEDS: ACCU-CHEK COMFORT CURVE STRIP VI SCH ×4 (06:12→22:15)
[2022-05-15] MEDS: InsuLIN REG 1unit/0.01ml Soln (100units/ml) SC SCH ×4 (06:18→22:38)
[2022-05-15 09:00] VITALS: BP 133/92
[2022-05-15] MEDS: PANTOPRAZOLE 40 MG/10 ML VIAL INJ IV SCH (09:03)
[2022-05-15] MEDS: FUROSEMIDE 40 MG/4 ML VIAL IV SCH (09:04)
[2022-05-15] MEDS: ISOSORBIDE MONONITRATE ER 60 MG TAB PO SCH (09:04)
[2022-05-15] MEDS: ASPirin 81 mg TAB PO SCH (09:04)
[2022-05-15] MEDS: CLOPIDOGREL BISULFATE 75 MG TAB PO SCH (09:05)
[2022-05-15] MEDS: LOSARTAN POTASSIUM 50 MG TAB PO SCH (09:05)
[2022-05-15] MEDS: METOPROLOL SUCCINATE XL 50 MG TAB PO SCH (09:06)
[2022-05-15 13:00] VITALS: BP 133/88
[2022-05-15 15:22] LABS: INR 0.97 (0.9-1.15)
[2022-05-15] MEDS ORDERED: ACCU-CHEK COMFORT CURVE STRIP VI SCH (16:00)
[2022-05-15] MEDS ORDERED: InsuLIN REG 1unit/0.01ml Soln (100units/ml) SC SCH (16:00)
[2022-05-15 17:00] VITALS: BP 110/77
[2022-05-15] MEDS: ACETAMINOPHEN 500 MG TAB PO PRN (17:34)
[2022-05-15 22:00] VITALS: BP 111/59
[2022-05-15] MEDS: ATORVASTATIN 20 MG TAB PO SCH (22:15)
[2022-05-16] MEDS: ACCU-CHEK COMFORT CURVE STRIP VI SCH ×6 (01:37→20:37)
[2022-05-16] MEDS: InsuLIN REG 1unit/0.01ml Soln (100units/ml) SC SCH ×6 (01:44→20:39)
[2022-05-16 05:00] VITALS: BP 137/101
[2022-05-16 07:55] VITALS: BP 140/96
[2022-05-16] MEDS: PANTOPRAZOLE 40 MG/10 ML VIAL INJ IV SCH (09:26)
[2022-05-16] MEDS: FUROSEMIDE 40 MG/4 ML VIAL IV SCH (09:26)
[2022-05-16] MEDS: ASPirin 81 mg TAB PO SCH (09:27)
[2022-05-16] MEDS: LOSARTAN POTASSIUM 50 MG TAB PO SCH (09:27)
[2022-05-16] MEDS: ISOSORBIDE MONONITRATE ER 60 MG TAB PO SCH (09:28)
[2022-05-16] MEDS: CLOPIDOGREL BISULFATE 75 MG TAB PO SCH (09:29)
[2022-05-16] MEDS: METOPROLOL SUCCINATE XL 50 MG TAB PO SCH (09:29)
[2022-05-16 12:15] VITALS: BP 119/86
[2022-05-16] MEDS: ACETAMINOPHEN 500 MG TAB PO PRN ×2 (13:38→21:56)
[2022-05-16] MEDS ORDERED: DOCUSATE SOD 100 MG CAP PO PRN (16:15)
[2022-05-16 17:00] VITALS: BP 131/79
[2022-05-16] MEDS: ATORVASTATIN 20 MG TAB PO SCH (21:42)
[2022-05-16] MEDS: INSULIN LANTUS (GLARGINE) 1 /0.01ml (100units/ml) SC SCH (21:55)
[2022-05-16 22:00] VITALS: BP 117/80
[2022-05-17] MEDS: ACCU-CHEK COMFORT CURVE STRIP VI SCH ×4 (00:01→11:53)
[2022-05-17] MEDS: InsuLIN REG 1unit/0.01ml Soln (100units/ml) SC SCH ×4 (00:08→11:58)
[2022-05-17] MEDS: ACETAMINOPHEN 500 MG TAB PO PRN (04:28)
[2022-05-17 05:18] VITALS: BP 121/87
[2022-05-17] MEDS: INSULIN LANTUS (GLARGINE) 1 /0.01ml (100units/ml) SC SCH (06:13)
[2022-05-17 06:38] LABS: BUN/Creatinine Ratio 26.3; Calcium 9.1 mg/dL (8.5-10.1); Potassium 3.8 mmol/L (3.5-5.1)
[2022-05-17 08:17] VITALS: BP 135/83
[2022-05-17] MEDS: ASPirin 81 mg TAB PO SCH (08:47)
[2022-05-17] MEDS: METOPROLOL SUCCINATE XL 50 MG TAB PO SCH (08:48)
[2022-05-17] MEDS: ISOSORBIDE MONONITRATE ER 60 MG TAB PO SCH (08:48)
[2022-05-17] MEDS: LOSARTAN POTASSIUM 50 MG TAB PO SCH (08:48)
[2022-05-17] MEDS: CLOPIDOGREL BISULFATE 75 MG TAB PO SCH (08:48)
[2022-05-17] MEDS: FUROSEMIDE 40 MG/4 ML VIAL IV SCH (08:49)
[2022-05-17] MEDS ORDERED: PANTOPRAZOLE 40 MG TAB PO SCH (10:00)
[2022-05-17] MEDS ORDERED: CLOP75TA70 PO (11:49)
[2022-05-17] MEDS ORDERED: ASPI-325 PO (11:49)
[2022-05-17] MEDS ORDERED: ISO60SRT PO (11:49)
[2022-05-17] MEDS ORDERED: POTA1TAB4 PO (11:49)
[2022-05-17] MEDS ORDERED: FURO1TAB31 PO (11:49)
[2022-05-17] MEDS ORDERED: ATOR20TA50 PO (11:49)
[2022-05-17 12:27] VITALS: BP 122/77
[2022-05-17 12:54] VITALS: BP 122/77
== END 2022-05-17 13:45 | disposition home or self-care (01) | DRG 174 ==
LOC: EDBD 16:55 → ER 16:55 → WEST WING 18:33 → TELE-WESTW 05-14 09:10
PROVIDERS: ADMIT Specialist; ATTEND Internal Medicine
PROC: 02703ZZ Dilation of Coronary Artery, One Artery, Percutaneous Approach (ICD-10-PCS; principal; 2022-05-13)
PROC: 4A023N7 Measurement of Cardiac Sampling and Pressure, Left Heart, Percutaneous Approach (ICD-10-PCS; 2022-05-13)
PROC: B211YZZ Fluoroscopy of Multiple Coronary Arteries using Other Contrast (ICD-10-PCS; 2022-05-13)
PROC: B215YZZ Fluoroscopy of Left Heart using Other Contrast (ICD-10-PCS; 2022-05-13)
PROC: 02C03ZZ Extirpation of Matter from Coronary Artery, One Artery, Percutaneous Approach (ICD-10-PCS; 2022-05-13)
PROC: B241ZZ3 Ultrasonography of Multiple Coronary Arteries, Intravascular (ICD-10-PCS; 2022-05-13)
PROC: B41F1ZZ Fluoroscopy of Right Lower Extremity Arteries using Low Osmolar Contrast (ICD-10-PCS; 2022-05-13)
DX: I21.09 ST elevation (STEMI) myocardial infarction involving other coronary artery of anterior wall (principal); I50.23 Acute on chronic systolic (congestive) heart failure; E11.22 Type 2 diabetes mellitus with diabetic chronic kidney disease; D68.9 Coagulation defect, unspecified; I25.10 Atherosclerotic heart disease of native coronary artery without angina pectoris; N18.30 Chronic kidney disease, stage 3 unspecified; E78.5 Hyperlipidemia, unspecified; Z20.822 Contact with and (suspected) exposure to COVID-19; F15.10 Other stimulant abuse, uncomplicated; F10.10 Alcohol abuse, uncomplicated; E66.01 Morbid (severe) obesity due to excess calories; I13.0 Hypertensive heart and chronic kidney disease with heart failure and stage 1 through stage 4 chronic kidney disease, or unspecified chronic kidney disease; Z79.02 Long term (current) use of antithrombotics/antiplatelets; Z68.37 Body mass index [BMI] 37.0-37.9, adult; Z79.82 Long term (current) use of aspirin; Z79.899 Other long term (current) drug therapy; Z91.19 Patient's noncompliance with other medical treatment and regimen; Z95.5 Presence of coronary angioplasty implant and graft; Z83.3 Family history of diabetes mellitus; Z79.84 Long term (current) use of oral hypoglycemic drugs
CPT/HCPCS: 36415; 71045; 75710; 80048; 80053; 80307; 81001; 82962; 83735; 83880; 84484; 85025; 85610; 85730; 87081; 92924; 92978; 93005; 93458; 96374; 96375; 99152; 99153; 99291; C9113; G0378; J1815; J2250; J2405

== ENCOUNTER 2022-07-14 12:27 | Inpatient (IN) | payer MEDICAID ==
[~2022-07-14] VITALS: Ht 165.1 cm; Wt 98.9 kg
[~2022-07-14 12:27] MED LIST changes: +ASPI-325 PO; +ATOR20TA50 PO; +CLOP75TA70 PO; +FURO1TAB31 PO; +ISO60SRT PO; +POTA1TAB4 PO
[2022-07-14 13:44] LABS: Basophils # (auto) 0.1 10 ^3/uL (0-0.2); Basophils % (auto) 1.2 % (0.0-2.0); Eosinophils # (auto) 0.2 10 ^3/uL (0-0.8); Eosinophils % (auto) 1.8 % (0.0-7.0); Hematocrit 43.9 % (41.0-53.0); Hemoglobin 13.9 g/dL (13.5-17.5); Lymphocytes # (auto) 1.7 10 ^3/uL (0.4-5.4); Mean Corpuscular Hemoglobin 27.8 pg (28.0-32.0); Mean Corpuscular Hgb Conc. 31.5 g/dL (32.0-36.0); Mean Corpuscular Volume 88.3 fL (80.0-100.0); Monocytes # (auto) 0.6 10 ^3/uL (0-1.3); Monocytes % (auto) 5.7 % (0.0-12.0); Neutrophils # (auto) 7.4 10 ^3/uL (1.6-8.6); Neutrophils % (auto) 74.3 % (37.0-80.0); Nucleated Red Blood Cells % 0.2 %; Red Blood Cells 4.97 10^6/uL (4.5-5.90); Red Cell Distribution Width 18.8 % (11.8-14.3)
[2022-07-14 14:48] LABS: Anion Gap 18 (5-15); Carbon Dioxide 16 mmol/L (21-32); Chloride 94 mmol/L (98-107); Potassium 4.2 mmol/L (3.5-5.1); Sodium 128 mmol/L (136-145)
[2022-07-14 14:49] LABS: Alkaline Phosphatase 231 U/L (45-117); BUN/Creatinine Ratio 22.3; Blood Urea Nitrogen 40 mg/dL (7-18); GFR African American 50 mL/min; GFR Non-African American 42 mL/min; Glucose 153 mg/dL (74-106)
[2022-07-14 14:50] LABS: Alanine Aminotransferase 268 U/L (16-61); Aspartate Aminotransferase 374 U/L (15-37); Bilirubin, Total 3.7 mg/dL (0.2-1.0); Calcium 8.6 mg/dL (8.5-10.1); Total Protein 7.1 g/dL (6.4-8.2)
[2022-07-14 14:51] LABS: Albumin 3.4 g/dL (3.4-5.0)
[2022-07-14] MEDS ORDERED: DEXTROSE (50%) 50ML SYRG IV PRN (21:30)
[2022-07-14] MEDS ORDERED: ONDANSETRON HCL 4 MG/2 ML VIAL IV PRN (21:30)
[2022-07-14] MEDS ORDERED: DOCUSATE SOD 100 MG CAP PO PRN (21:30)
[2022-07-14] MEDS ORDERED: FUROSEMIDE 40 MG/4 ML VIAL IV ONE (21:30)
[2022-07-14] MEDS ORDERED: IBUPROFEN 600 MG TAB PO PRN (21:30)
[2022-07-14] MEDS ORDERED: MORPHINE SULFATE INJ 2 MG/ml SYRG IV PRN (23:00)
[2022-07-14] MEDS ORDERED: NITROGLYCERIN 0.4 MG SL TAB SL PRN (23:00)
[2022-07-14] MEDS: SODIUM CHLOR 0.9% PF (SALINE LOCK) 10ML VIAL/SYR IV SCH (23:24)
[2022-07-14] MEDS: ACCU-CHEK COMFORT CURVE STRIP VI SCH (23:36)
[2022-07-14] MEDS: ATORVASTATIN 20 MG TAB PO SCH (23:39)
[2022-07-14] MEDS: CARVEDILOL 3.125 MG TAB PO SCH (23:39)
[2022-07-14] MEDS: InsuLIN REG 1unit/0.01ml Soln (100units/ml) SC SCH (23:40)
[2022-07-15 01:40] LABS: Albumin 3.2 g/dL (3.4-5.0); BUN/Creatinine Ratio 25.8; Calcium 8.6 mg/dL (8.5-10.1); Potassium 3.5 mmol/L (3.5-5.1)
[2022-07-15 01:43] LABS: Bilirubin, Total 2.6 mg/dL (0.2-1.0); Total Protein 6.9 g/dL (6.4-8.2)
[2022-07-15 04:48] LABS: Alcohol, Urine < 3.0 mg/dL (0-10); Amphetamine Screen, Urine POSITIVE (NEGATIVE); Cannabinoid Screen, Urine NEGATIVE (NEGATIVE)
[2022-07-15 04:56] LABS: Barbiturate Scree,Urine NEGATIVE (NEGATIVE); Benzodiazephine Screen, Urine NEGATIVE (NEGATIVE); Cocaine Screen, Urine NEGATIVE (NEGATIVE); Opiate Scree,Urine NEGATIVE (NEGATIVE); Phencyclidine Screen, Urine NEGATIVE (NEGATIVE)
[2022-07-15] MEDS: SODIUM CHLOR 0.9% PF (SALINE LOCK) 10ML VIAL/SYR IV SCH ×3 (06:25→22:46)
[2022-07-15] MEDS: ACCU-CHEK COMFORT CURVE STRIP VI SCH ×4 (06:36→22:45)
[2022-07-15] MEDS: InsuLIN REG 1unit/0.01ml Soln (100units/ml) SC SCH ×4 (06:37→22:45)
[2022-07-15 06:40] LABS: Urine Bacteria NONE SEEN /hpf (None Seen); Urine Blood Negative /uL (Negative); Urine Specific Gravity 1.006 (1.001-1.035); Urine WBC <1 /hpf (0 - 3)
[2022-07-15 07:03] LABS: Basophils # (auto) 0.1 10 ^3/uL (0-0.2); Basophils % (auto) 1.4 % (0.0-2.0); Eosinophils # (auto) 0.5 10 ^3/uL (0-0.8); Eosinophils % (auto) 5.7 % (0.0-7.0); Hematocrit 39.4 % (41.0-53.0); Hemoglobin 12.9 g/dL (13.5-17.5); Lymphocytes # (auto) 1.5 10 ^3/uL (0.4-5.4); Mean Corpuscular Hemoglobin 28.5 pg (28.0-32.0); Mean Corpuscular Hgb Conc. 32.9 g/dL (32.0-36.0); Mean Corpuscular Volume 86.6 fL (80.0-100.0); Monocytes # (auto) 0.5 10 ^3/uL (0-1.3); Monocytes % (auto) 5.1 % (0.0-12.0); Neutrophils # (auto) 6.5 10 ^3/uL (1.6-8.6); Neutrophils % (auto) 71.8 % (37.0-80.0); Nucleated Red Blood Cells % 0.1 %; Red Blood Cells 4.55 10^6/uL (4.5-5.90); Red Cell Distribution Width 18.5 % (11.8-14.3); White Blood Cell 9.1 10^3/uL (4.4-10.8)
[2022-07-15 07:07] LABS: Potassium 3.6 mmol/L (3.5-5.1)
[2022-07-15 07:13] LABS: Albumin 3.1 g/dL (3.4-5.0); BUN/Creatinine Ratio 26.3; Bilirubin, Total 2.2 mg/dL (0.2-1.0); Calcium 8.3 mg/dL (8.5-10.1); Total Protein 6.4 g/dL (6.4-8.2)
[2022-07-15] MEDS ORDERED: FUROSEMIDE 40 MG/4 ML VIAL IV SCH (10:00)
[2022-07-15] MEDS: THIAMINE 100mg/ml INJ (200mg/2ml VIAL) IV SCH (10:26)
[2022-07-15] MEDS: B-COMPLEX W/ C & FOLIC ACID(NEPHROVITE TAB) PO SCH (10:26)
[2022-07-15] MEDS: CLOPIDOGREL BISULFATE 75 MG TAB PO SCH (10:26)
[2022-07-15] MEDS: ASPirin 81 mg TAB PO SCH (10:26)
[2022-07-15] MEDS: CARVEDILOL 3.125 MG TAB PO SCH ×2 (10:27→22:44)
[2022-07-15] MEDS ORDERED: DOBUTamine 1000MCG/ML 250 ML IV SCH (10:45)
[2022-07-15] MEDS: MILRINONE 20MG/100ML 100 ML IV SCH ×2 (14:53→22:51)
[2022-07-15] MEDS: FUROSEMIDE 40 MG/4 ML VIAL IV SCH (18:05)
[2022-07-15] MEDS: ATORVASTATIN 20 MG TAB PO SCH (22:44)
[2022-07-15 22:47] VITALS: BP 122/77
[2022-07-15 23:16] VITALS: BP 122/77
[2022-07-16] MEDS: MILRINONE 20MG/100ML 100 ML IV SCH ×2 (03:00→15:13)
[2022-07-16 05:30] VITALS: BP 128/76
[2022-07-16] MEDS: SODIUM CHLOR 0.9% PF (SALINE LOCK) 10ML VIAL/SYR IV SCH ×3 (05:44→22:41)
[2022-07-16] MEDS: InsuLIN REG 1unit/0.01ml Soln (100units/ml) SC SCH ×4 (05:45→22:46)
[2022-07-16 06:34] LABS: Basophils # (auto) 0.1 10 ^3/uL (0-0.2); Basophils % (auto) 1.3 % (0.0-2.0); Eosinophils # (auto) 0.6 10 ^3/uL (0-0.8); Eosinophils % (auto) 7.8 % (0.0-7.0); Hematocrit 35.7 % (41.0-53.0); Hemoglobin 11.7 g/dL (13.5-17.5); Lymphocytes # (auto) 0.7 10 ^3/uL (0.4-5.4); Lymphocytes % (auto) 9.1 % (10.0-50.0); Mean Corpuscular Hemoglobin 28.6 pg (28.0-32.0); Mean Corpuscular Hgb Conc. 32.7 g/dL (32.0-36.0); Mean Corpuscular Volume 87.4 fL (80.0-100.0); Monocytes # (auto) 0.6 10 ^3/uL (0-1.3); Monocytes % (auto) 7.3 % (0.0-12.0); Neutrophils # (auto) 5.6 10 ^3/uL (1.6-8.6); Neutrophils % (auto) 74.5 % (37.0-80.0); Nucleated Red Blood Cells % 0.1 %; Red Blood Cells 4.08 10^6/uL (4.5-5.90); Red Cell Distribution Width 18.3 % (11.8-14.3); White Blood Cell 7.5 10^3/uL (4.4-10.8)
[2022-07-16] MEDS: ACCU-CHEK COMFORT CURVE STRIP VI SCH ×4 (06:39→22:43)
[2022-07-16] MEDS: FUROSEMIDE 40 MG/4 ML VIAL IV SCH ×2 (06:39→17:36)
[2022-07-16 06:51] LABS: BUN/Creatinine Ratio 28.3; Magnesium 1.8 mg/dL (1.6-2.6); Potassium 3.3 mmol/L (3.5-5.1)
[2022-07-16 07:30] VITALS: BP 128/76
[2022-07-16 09:00] VITALS: BP 98/68
[2022-07-16] MEDS: THIAMINE 100mg/ml INJ (200mg/2ml VIAL) IV SCH (09:09)
[2022-07-16] MEDS: ASPirin 81 mg TAB PO SCH (09:09)
[2022-07-16] MEDS: CARVEDILOL 3.125 MG TAB PO SCH ×2 (09:20→22:42)
[2022-07-16] MEDS: B-COMPLEX W/ C & FOLIC ACID(NEPHROVITE TAB) PO SCH (09:21)
[2022-07-16] MEDS: CLOPIDOGREL BISULFATE 75 MG TAB PO SCH (09:21)
[2022-07-16] MEDS ORDERED: ENOXAPARIN SOD 100 MG/1 ML SYRINGE SC ONE (11:00)
[2022-07-16] MEDS ORDERED: LACTULOSE 20Gm/30ML SOLN PO PRN (12:00)
[2022-07-16 13:00] VITALS: BP 132/88
[2022-07-16 17:06] VITALS: BP 129/92
[2022-07-16 21:50] VITALS: BP 163/103
[2022-07-16] MEDS ORDERED: ENOXAPARIN SOD 100 MG/1 ML SYRINGE SC SCH (22:00)
[2022-07-16] MEDS: DOCUSATE SOD 100 MG CAP PO SCH (22:00)
[2022-07-16] MEDS: ATORVASTATIN 20 MG TAB PO SCH (22:42)
[2022-07-17] MEDS: MILRINONE 20MG/100ML 100 ML IV SCH (01:57)
[2022-07-17 05:00] VITALS: BP 113/76
[2022-07-17] MEDS: SODIUM CHLOR 0.9% PF (SALINE LOCK) 10ML VIAL/SYR IV SCH ×2 (06:13→13:30)
[2022-07-17] MEDS: ACCU-CHEK COMFORT CURVE STRIP VI SCH ×2 (06:13→12:05)
[2022-07-17] MEDS: FUROSEMIDE 40 MG/4 ML VIAL IV SCH (06:13)
[2022-07-17] MEDS: InsuLIN REG 1unit/0.01ml Soln (100units/ml) SC SCH ×2 (06:14→12:09)
[2022-07-17 08:58] VITALS: BP 151/85
[2022-07-17] MEDS ORDERED: APIXABAN 5 MG TAB PO SCH (10:00)
[2022-07-17] MEDS ORDERED: CARVEDILOL 12.5 MG TAB PO SCH (10:00)
[2022-07-17] MEDS: DOCUSATE SOD 100 MG CAP PO SCH (10:00)
[2022-07-17] MEDS: CLOPIDOGREL BISULFATE 75 MG TAB PO SCH (10:26)
[2022-07-17] MEDS: B-COMPLEX W/ C & FOLIC ACID(NEPHROVITE TAB) PO SCH (10:26)
[2022-07-17] MEDS: THIAMINE 100mg/ml INJ (200mg/2ml VIAL) IV SCH (10:26)
[2022-07-17] MEDS ORDERED: APIX5TAB PO (12:10)
[2022-07-17] MEDS ORDERED: SODIUM CHL 0.9% 1000 ML BAG XX ONE (12:30)
[2022-07-17 12:39] VITALS: BP 114/90
[2022-07-17 13:00] VITALS: BP 114/90
[2022-07-17] MEDS ORDERED: FUROSEMIDE 40 MG/4 ML VIAL IV SCH (18:00)
== END 2022-07-17 15:00 | disposition home or self-care (01) | DRG 133 ==
LOC: ER 12:27 → TELE 22:49 → TELE-EAST 07-15 21:09
PROVIDERS: ADMIT Nurse Practitioner Family; ATTEND Internal Medicine
DX: J96.21 Acute and chronic respiratory failure with hypoxia (principal); N17.0 Acute kidney failure with tubular necrosis; I42.0 Dilated cardiomyopathy; E87.1 Hypo-osmolality and hyponatremia; I42.7 Cardiomyopathy due to drug and external agent; E11.22 Type 2 diabetes mellitus with diabetic chronic kidney disease; I13.0 Hypertensive heart and chronic kidney disease with heart failure and stage 1 through stage 4 chronic kidney disease, or unspecified chronic kidney disease; F10.10 Alcohol abuse, uncomplicated; Z20.822 Contact with and (suspected) exposure to COVID-19; K42.9 Umbilical hernia without obstruction or gangrene; R79.89 Other specified abnormal findings of blood chemistry; E78.5 Hyperlipidemia, unspecified; E66.9 Obesity, unspecified; F15.10 Other stimulant abuse, uncomplicated; I51.3 Intracardiac thrombosis, not elsewhere classified; K74.60 Unspecified cirrhosis of liver; Y90.9 Presence of alcohol in blood, level not specified; E87.6 Hypokalemia; I48.91 Unspecified atrial fibrillation; K59.00 Constipation, unspecified; N18.9 Chronic kidney disease, unspecified; I25.2 Old myocardial infarction; Z98.61 Coronary angioplasty status; Z80.0 Family history of malignant neoplasm of digestive organs; Z83.3 Family history of diabetes mellitus; Z91.19 Patient's noncompliance with other medical treatment and regimen; Z79.4 Long term (current) use of insulin; Z79.01 Long term (current) use of anticoagulants; Z68.36 Body mass index [BMI] 36.0-36.9, adult
CPT/HCPCS: 36415; 71045; 74176; 80048; 80053; 80307; 80320; 81001; 82962; 83036; 83735; 83880; 84484; 85025; 93005; 93306; 96374; 96375; G0378; J1815

== ENCOUNTER 2022-07-18 11:06 | Inpatient (IN) | payer MEDICAID ==
[~2022-07-18] VITALS: Ht 167.6 cm; Wt 104.0 kg
[~2022-07-18 11:06] MED LIST changes: +APIX5TAB PO; -ASPI-543 PO; -LEVO-28 PO; -POTA-220 PO
[2022-07-18 12:15] LABS: Basophils # (auto) 0.1 10 ^3/uL (0-0.2); Basophils % (auto) 1.1 % (0.0-2.0); Eosinophils # (auto) 0.1 10 ^3/uL (0-0.8); Eosinophils % (auto) 1.5 % (0.0-7.0); Hematocrit 40.3 % (41.0-53.0); Hemoglobin 12.9 g/dL (13.5-17.5); Lymphocytes # (auto) 0.9 10 ^3/uL (0.4-5.4); Lymphocytes % (auto) 9.7 % (10.0-50.0); Mean Corpuscular Hemoglobin 28.1 pg (28.0-32.0); Mean Corpuscular Hgb Conc. 32.1 g/dL (32.0-36.0); Mean Corpuscular Volume 87.6 fL (80.0-100.0); Monocytes # (auto) 0.6 10 ^3/uL (0-1.3); Monocytes % (auto) 6.3 % (0.0-12.0); Neutrophils # (auto) 7.8 10 ^3/uL (1.6-8.6); Neutrophils % (auto) 81.4 % (37.0-80.0); Nucleated Red Blood Cells % 0.1 %; Red Cell Distribution Width 18.3 % (11.8-14.3); White Blood Cell 9.6 10^3/uL (4.4-10.8)
[2022-07-18 12:21] LABS: Albumin 3.2 g/dL (3.4-5.0); Calcium 8.4 mg/dL (8.5-10.1); Magnesium 1.8 mg/dL (1.6-2.6); Potassium 3.7 mmol/L (3.5-5.1)
[2022-07-18 12:26] LABS: BUN/Creatinine Ratio 24.1; Bilirubin, Total 1.7 mg/dL (0.2-1.0); Total Protein 6.9 g/dL (6.4-8.2)
[2022-07-18] MEDS ORDERED: ALBUTEROL SULF 2.5 MG/0.5ML(0.5%) NEB SOLN NEB ONE (12:45)
[2022-07-18] MEDS ORDERED: IPRATROPIUM BROM 0.5 MG/2.5ML INH SOL NEB ONE (12:45)
[2022-07-18] MEDS ORDERED: FUROSEMIDE 100 MG/10ML VIAL IV ONE (12:45)
[2022-07-18] MEDS ORDERED: methylPREDNISolone SOD SUCC 125 MG/2 ML VL IV ONE (12:45)
[2022-07-18] MEDS ORDERED: chlordiazePOXIDE HCL 25 MG CAP PO PRN (18:00)
[2022-07-18] MEDS ORDERED: NITROGLYCERIN 0.4 MG SL TAB SL PRN (18:00)
[2022-07-18] MEDS ORDERED: MORPHINE SULFATE INJ 2 MG/ml SYRG IV PRN (18:00)
[2022-07-18] MEDS: FUROSEMIDE 40 MG/4 ML VIAL IV SCH (18:51)
[2022-07-18 19:04] LABS: Amphetamine Screen, Urine NEGATIVE (NEGATIVE); Barbiturate Scree,Urine NEGATIVE (NEGATIVE); Benzodiazephine Screen, Urine NEGATIVE (NEGATIVE); Cannabinoid Screen, Urine NEGATIVE (NEGATIVE); Cocaine Screen, Urine NEGATIVE (NEGATIVE); Opiate Scree,Urine NEGATIVE (NEGATIVE); Phencyclidine Screen, Urine NEGATIVE (NEGATIVE)
[2022-07-18 19:05] LABS: Urine Bacteria NONE SEEN /hpf (None Seen); Urine Blood Negative /uL (Negative); Urine Hyaline Cast FEW /lpf (0 - 2); Urine Specific Gravity 1.013 (1.001-1.035); Urine WBC <1 /hpf (0 - 3)
[2022-07-18] MEDS: SACUBITRIL-VALSARTAN 24mg/26mg TAB PO SCH (22:08)
[2022-07-18] MEDS: ATORVASTATIN 20 MG TAB PO SCH (22:09)
[2022-07-18] MEDS: CARVEDILOL 3.125 MG TAB PO SCH (22:09)
[2022-07-18] MEDS: APIXABAN 5 MG TAB PO SCH (22:10)
[2022-07-18 23:00] VITALS: BP 158/109
[2022-07-19 05:04] LABS: Basophils # (auto) 0 10 ^3/uL (0-0.2); Basophils % (auto) 0.3 % (0.0-2.0); Eosinophils # (auto) 0 10 ^3/uL (0-0.8); Hematocrit 42.5 % (41.0-53.0); Hemoglobin 13.6 g/dL (13.5-17.5); Lymphocytes # (auto) 0.4 10 ^3/uL (0.4-5.4); Lymphocytes % (auto) 6.1 % (10.0-50.0); Mean Corpuscular Hemoglobin 28.7 pg (28.0-32.0); Mean Corpuscular Volume 89.6 fL (80.0-100.0); Monocytes # (auto) 0.1 10 ^3/uL (0-1.3); Neutrophils # (auto) 6.1 10 ^3/uL (1.6-8.6); Neutrophils % (auto) 92.6 % (37.0-80.0); Nucleated Red Blood Cells % 0.1 %; Red Blood Cells 4.74 10^6/uL (4.5-5.90); Red Cell Distribution Width 18.8 % (11.8-14.3); White Blood Cell 6.6 10^3/uL (4.4-10.8)
[2022-07-19 05:28] LABS: Calcium 8.6 mg/dL (8.5-10.1); Potassium 4.2 mmol/L (3.5-5.1)
[2022-07-19 05:32] LABS: BUN/Creatinine Ratio 23.4; Bilirubin, Total 2.2 mg/dL (0.2-1.0); Total Protein 6.3 g/dL (6.4-8.2)
[2022-07-19 05:38] VITALS: BP 121/77
[2022-07-19] MEDS: FUROSEMIDE 40 MG/4 ML VIAL IV SCH ×2 (06:11→19:29)
[2022-07-19 08:00] VITALS: BP 112/75
[2022-07-19 08:10] VITALS: BP 112/75
[2022-07-19] MEDS: THIAMINE HCL 100 MG TAB PO SCH (10:13)
[2022-07-19] MEDS: DIGOXIN 0.125 MG TAB PO SCH (10:14)
[2022-07-19] MEDS: CARVEDILOL 3.125 MG TAB PO SCH ×2 (10:14→21:28)
[2022-07-19] MEDS: CLOPIDOGREL BISULFATE 75 MG TAB PO SCH (10:14)
[2022-07-19] MEDS: ASPirin-EC 81 mg tab PO SCH (10:15)
[2022-07-19] MEDS: SACUBITRIL-VALSARTAN 24mg/26mg TAB PO SCH ×2 (10:15→21:20)
[2022-07-19] MEDS: FOLIC ACID 1 MG TAB PO SCH (10:15)
[2022-07-19] MEDS: APIXABAN 5 MG TAB PO SCH ×2 (10:15→21:19)
[2022-07-19 12:00] VITALS: BP 126/93
[2022-07-19 16:00] VITALS: BP 129/86
[2022-07-19] MEDS ORDERED: DEXTROSE (50%) 50ML SYRG IV PRN ×2 (17:15→21:45)
[2022-07-19] MEDS: ATORVASTATIN 20 MG TAB PO SCH (21:19)
[2022-07-19 22:00] VITALS: BP 135/85
[2022-07-19] MEDS ORDERED: ACCU-CHEK COMFORT CURVE STRIP VI SCH (22:00)
[2022-07-19] MEDS ORDERED: InsuLIN REG 1unit/0.01ml Soln (100units/ml) SC SCH (22:00)
[2022-07-20] MEDS: ACCU-CHEK COMFORT CURVE STRIP VI SCH ×5 (00:33→16:08)
[2022-07-20] MEDS: InsuLIN REG 1unit/0.01ml Soln (100units/ml) SC SCH ×5 (00:35→16:28)
[2022-07-20 05:00] VITALS: BP 137/105
[2022-07-20] MEDS: FUROSEMIDE 40 MG/4 ML VIAL IV SCH (06:20)
[2022-07-20 08:15] VITALS: BP 129/92
[2022-07-20 09:00] VITALS: BP 129/92
[2022-07-20] MEDS: CLOPIDOGREL BISULFATE 75 MG TAB PO SCH (10:28)
[2022-07-20] MEDS: FOLIC ACID 1 MG TAB PO SCH (10:28)
[2022-07-20] MEDS: THIAMINE HCL 100 MG TAB PO SCH (10:28)
[2022-07-20] MEDS: ASPirin-EC 81 mg tab PO SCH (10:28)
[2022-07-20] MEDS: SACUBITRIL-VALSARTAN 24mg/26mg TAB PO SCH (10:28)
[2022-07-20] MEDS: DIGOXIN 0.125 MG TAB PO SCH (10:29)
[2022-07-20] MEDS: APIXABAN 5 MG TAB PO SCH (10:29)
[2022-07-20] MEDS: CARVEDILOL 3.125 MG TAB PO SCH (10:29)
[2022-07-20 13:00] VITALS: BP 124/90
[2022-07-20 14:30] VITALS: BP 124/98
[2022-07-20 16:45] VITALS: BP 134/97
== END 2022-07-20 16:50 | disposition home or self-care (01) | DRG 194 ==
LOC: ER 11:06 → EDBD 11:06 → TELE 18:05 → TELE-WESTW 21:44
PROVIDERS: ADMIT Nurse Practitioner Acute Care; ATTEND Nurse Practitioner Acute Care
DX: I11.0 Hypertensive heart disease with heart failure (principal); J96.21 Acute and chronic respiratory failure with hypoxia; I21.A1 Myocardial infarction type 2; I50.23 Acute on chronic systolic (congestive) heart failure; I42.7 Cardiomyopathy due to drug and external agent; I51.3 Intracardiac thrombosis, not elsewhere classified; I25.10 Atherosclerotic heart disease of native coronary artery without angina pectoris; E11.9 Type 2 diabetes mellitus without complications; E66.9 Obesity, unspecified; E78.5 Hyperlipidemia, unspecified; F15.10 Other stimulant abuse, uncomplicated; Z20.822 Contact with and (suspected) exposure to COVID-19; T50.905A Adverse effect of unspecified drugs, medicaments and biological substances, initial encounter; Y92.89 Other specified places as the place of occurrence of the external cause; Z79.02 Long term (current) use of antithrombotics/antiplatelets; I25.2 Old myocardial infarction; Z79.4 Long term (current) use of insulin; Z79.899 Other long term (current) drug therapy; Z80.0 Family history of malignant neoplasm of digestive organs; Z83.3 Family history of diabetes mellitus; Z86.79 Personal history of other diseases of the circulatory system; Z91.19 Patient's noncompliance with other medical treatment and regimen; Z95.5 Presence of coronary angioplasty implant and graft; Z68.37 Body mass index [BMI] 37.0-37.9, adult
CPT/HCPCS: 36415; 71045; 80053; 80162; 80307; 81001; 82140; 82962; 83605; 83735; 83880; 84484; 85025; 93005; 94640; 96374; 96375; G0378; J1815